=== PATIENT | female | born 1940 | race Caucasian/White ===

== ENCOUNTER → 2017-08-13 10:10 | Outpatient (CLI) | payer MEDICARE, SELFPAY ==
--- NOTE | 2017-08-13 10:14 | RAD_ITS ---
STUDY: X-RAY - CERVICAL SPINE REASON FOR EXAM: Female, 77 years old. Neck pain. TECHNIQUE: 5 view(s) of the cervical spine including lateral flexion and extension views were obtained. COMPARISON: None FINDINGS: There is generalized osteopenia. Normal anterior atlantoaxial articulation. Normal odontoid process. Normal cervical lordosis. There is limited extension and normal flexion. No abnormal motion is identified. Normal vertebral bodies and endplates. There is diffuse mild intervertebral disc space narrowing most marked at C3-4 and C4-5. There is diffuse uncovertebral and facet sclerosis. The soft tissue structures are unremarkable. RAD/Cerv Spine Obl/Flex/Ext Comp IMPRESSION: Osteopenia with mild cervical spondylosis. Limited extension with no abnormal motion. Electronically Signed: Dony Levy MD at 13:22 EDT , Service support ,
== END ==
PROVIDERS: Family Provider Student in an Organized Health Care Education/Training Program; PCP Student in an Organized Health Care Education/Training Program; Visit Provider Orthopaedic Surgery
DX: M54.2 Cervicalgia (principal)
CPT/HCPCS: 72052

== ENCOUNTER → 2017-11-05 10:47 | Outpatient (CLI) | payer MEDICARE, SELFPAY ==
--- NOTE | 2017-11-05 | LES_PTH ---
PATIENT: [facility] LOC: [facility] U#:[id number] AGE/SX: 84/F ROOM: RE11/05/[address]: Dr. Dieudonne Rai, BANDAR : 1940 BED: DIS: SPEC #: [id number] RECD: 11/05/17 10:31 STATUS: LIU KERA #: [id number] MONTSE: 11/05/17 00:[address]: Dieudonne Rai DEPT: SURGICAL PATHOLOGY RECD BY: Marjan Og ENTERED: 11/05/17 12:25 SP TYPE: Lesion OTHR DR: Dr. Ash Conway, Tissues: Skin of lip, NOS Procedures: Special Stain Group I Surgery Specimen Level IV AFB Stain (control) GMS Stain (control) HEADER OPERATION: Biopsy, lip PRE-OP DIAGNOSIS: Several month history for growth TISSUE SUBMITTED: Lower lip biopsy (fibroma) MICROSCOPIC DIAGNOSIS Lower lip, biopsy: Squamous mucosa with focal ulceration and associated acute inflammation and pseudo-epitheliomatous hyperplasia. Special stains for acid fast bacilli and fungi are negative for organisms; matched controls are appropriate. Negative for malignancy. JOSE:ashley 11/06/17 MICROSCOPIC DESCRIPTION Slides are reviewed. GROSS DESCRIPTION Received in fixative is one container labeled with the patient's name and designated lip lower. The specimen consists of a piece of scott soft tissue measuring 0.5 x 0.5 x 0.2 cm. The specimen is inked and submitted entirely in one cassette. The specimen will be bisected at the time of embedding. / JOSE:ashley 11/05/17 TC:2 CPT: 21822, 38720 x2
== END ==
PROVIDERS: Family Provider Student in an Organized Health Care Education/Training Program; PCP Student in an Organized Health Care Education/Training Program; Visit Provider Dentist Oral and Maxillofacial Surgery
DX: D10.0 Benign neoplasm of lip (principal)
CPT/HCPCS: 88305; 88312

== ENCOUNTER 2019-12-31 13:07 | Observation (INO) | payer MEDICARE, SELFPAY ==
[2019-12-31] VITALS (10 sets, daily range): BP systolic 97–172; BP diastolic 48–83; PULSE 61–86; RESP 15–24; TEMP 36.4–39.6; O2SAT 91–98; BMI 26.5; BMI 27.8; BMI 27.9
--- NOTE | 2019-12-31 13:32 | RAD_ITS ---
STUDY: X-RAY CHEST REASON FOR EXAM: Female, 79 years old. COUGH, , SHORTNESS OF BREATH TECHNIQUE: Single AP portable view of the chest. COMPARISON: None. FINDINGS: EKG electrodes are seen. Mild increased linear markings at the lung bases suggestive of mild interstitial edema and vascular congestion. There is no demonstrated pleural abnormality. There is mild cardiac enlargement. Normal mediastinum and tomas. Normal visualized pulmonary arteries. There is atherosclerotic tortuosity of the aortic arch and descending thoracic aorta. There are diffuse degenerative changes of the visualized thoracic spine. There is degenerative osteoarthritis of the bilateral shoulders. There is no demonstrated abnormality of the visualized soft tissue structures of the upper abdomen. RAD/Chest 1 View (Portable) IMPRESSION: Mild cardiomegaly and mild vascular congestion and CHF. Electronically Signed: Ricardo Anthony, at 14:57 EDT , Service support ,
--- NOTE | 2019-12-31 13:32 | EKG12_ITS ---
Test Reason : SOB Blood Pressure : / mmHG Vent. Rate : 082 BPM Atrial Rate : 082 BPM P-R Int : 180 ms QRS Dur : 078 ms QT Int : 388 ms P-R-T Axes : 038 -16 -14 degrees QTc Int : 453 ms Normal sinus rhythm with sinus arrhythmia Inferior infarct , age undetermined Abnormal ECG Confirmed by MERRILL LLANES, FRANDY ([id number]), editor house organ ROSITA MARTINEZ ([id number]) on 01/01/2020 9:30:49 AM Referred By: STARLA Confirmed By:FRANDY MOMIN MD
--- NOTE | 2019-12-31 13:33 | RAD_ITS ---
STUDY: X-RAY - LEFT FOOT CLINICAL: Female, 79 years old. REDNESS, SWOLLEN TECHNIQUE: 3 view(s) of the foot. COMPARISON: None. FINDINGS: There is a plantar calcaneal spur. Normal visualized subtalar, talonavicular, calcaneocuboid, tarsal and tarsometatarsal articulations. Normal metatarsi. There is degenerative arthrosis of the metatarsophalangeal joint of the hallux . Erosive changes of the head of the first metatarsal suggestive of possible osteomyelitis. Diffuse soft tissue swelling of the great toe. Normal tibial and fibular sesamoid bones. Normal interphalangeal joint of the great toe. Normal phalanges of the great toe. Flexion deformity at the second and third metatarsophalangeal joints. Normal interphalangeal joints and phalanges of the lesser toes. Soft tissue swelling. RAD/Foot min 3 Views IMPRESSION: Findings suggestive of erosive changes at the head of the first metatarsal suggestive of possible osteomyelitis. Flexion deformity at the second and third metatarsophalangeal joints. Plantar spur. Electronically Signed: Ricardo Anthony, at 15:07 EDT , Service support ,
--- NOTE | 2019-12-31 13:34 | ED.VIS.GEN ---
History of Present Illness Chief Complaint: General Illness Informant: Patient, Family Onset: Yesterday Current Severity: Moderate Maximum Severity: Moderate Narrative: Patient presents secondary to generalized illness that she noted yesterday. She complains of cough and chills along with headache and intermittent shortness of breath. She does report a wound on her left great toe that was first noted approximately 3 days ago. - Past Medical History (1) HTN (hypertension) Status: Chronic Comment: low T4-T3 conversion (2) Hypothyroid Status: Chronic (3) Osteoarthritis Status: Chronic Past Medical History - Allergies and Home Meds Allergies/Adverse Reactions: Allergies Aminoglycosides Allergy (Verified 12/31/19 13:08) Rash bee pollen [Bee Pollen] Allergy (Verified 12/31/19 13:08) Anaphylaxis celecoxib [From Celebrex] Allergy (Verified 12/31/19 13:08) Itching Sulfa (Sulfonamide Antibiotics) Allergy (Verified 12/31/19 13:08) Rash aspirin Adverse Reaction (Verified 12/31/19 13:08) Other Penicillins Adverse Reaction (Verified 12/31/19 13:08) Rash Primary Care Physician: Ash Conway DO [Primary Care Provider] - Prior records reviewed: Yes Lives: With Family Smoking Status: Never smoker Review of Systems General: Reports: Chills, Fever - Temperature 100.1 today Eyes: Denies: Visual changes - bilaterally ENT: Denies: Bilateral ear pain Cardiovascular: Denies: Chest pain Respiratory: Reports: Dyspnea, Cough Gastrointestinal: Denies: Abdominal pain Musculoskeletal: Reports: Myalgias Skin: Reports: Wounds Neurological: Reports: Headache, Weakness - Generalized weakness Hematologic: Denies: Easy bruising, Easy bleeding Allergy: Denies: Uticaria Physical Exam Vital Signs/Narrative: Vital Signs Temp Pulse Resp BP Pulse Ox 12/31/19 13:08 97.6 F L 66 20 H 140/71 H 98 Inital Vital Signs reviewed: Yes General: Well nourished, Well developed Head: Normocephalic ENT: Moist mucous membranes Neck: Supple Cardiovascular: Regular rate, Regular rhythm Respiratory: No distress, CTA bilaterally Abdomen: Soft, Nontender Skin: - - Wound to the medial aspect of the left great toe. No drainage noted. There is separate erythema over the lower leg and onto the proximal foot that is warm to the touch. No open wounds in this area. Neurological: Alert, Oriented x3 Psychological: Normal affect Diagnostic/Tx/Re-eval Impressions Chest X-Ray 12/31/19 13:32 IMPRESSION: Mild cardiomegaly and mild vascular congestion and CHF. Electronically Signed: Ricardo Contrerastalnoemi, at 14:57 EDT , Service support , Foot X-Ray 12/31/19 13:33 IMPRESSION: Findings suggestive of erosive changes at the head of the first metatarsal suggestive of possible osteomyelitis. Flexion deformity at the second and third metatarsophalangeal joints. Plantar spur. Electronically Signed: Ricardo Gabrielle, at 15:07 EDT , Service support , 12/31/19 13:32 Chest 1 View (Portable) [RAD] Stat 12/31/19 13:33 Foot min 3 Views [RAD] Stat Laboratory Results 12/31/19 12/31/19 12/31/19 13:42 13:42 13:42 WBC 12.5 H RBC 3.45 L Hgb 11.1 L Hct 32.9 L MCV 95.4 MCH 32.2 H MCHC 33.7 RDW Std Deviation 43.2 RDW Coeff of Zaheer 12.3 Plt Count 221 MPV 11.3 Immature Gran % (Auto) 0.700 Neut % (Auto) 84.8 H Lymph % (Auto) 7.1 L [place] % (Auto) 6.5 Eos % (Auto) 0.6 Baso % (Auto) 0.3 Absolute Neuts (auto) 10.6 H Absolute Lymphs (auto) 0.89 Nucleated RBC % 0 Sodium 139 Potassium 4.0 Chloride 108 H Carbon Dioxide 25.0 Anion Gap 6 BUN 22 H Creatinine 1.12 H Estim Creat Clear Calc 32.74 Est GFR (MDRD) Af Amer 60 Est GFR (MDRD) Non-Af 50 L BUN/Creatinine Ratio 19.6 Glucose 124 H Lactic Acid 1.0 Calcium 8.9 Total Bilirubin 1.30 H Direct Bilirubin 0.44 H AST 28 ALT 25 Alkaline Phosphatase 175 H Total Protein 7.1 Albumin 3.3 Globulin 3.8 Urine Color Urine Clarity Urine pH Ur Specific [place] Urine Protein Urine Glucose (UA) Urine Ketones Urine Occult Blood Urine Nitrite Urine Bilirubin Urine Urobilinogen Ur Leukocyte Esterase Urine RBC Urine WBC Ur Squamous Epith Cells Urine Bacteria Urine Mucus 12/31/19 14:00 WBC RBC Hgb Hct MCV MCH MCHC RDW Std Deviation RDW Coeff of Zaheer Plt Count MPV Immature Gran % (Auto) Neut % (Auto) Lymph % (Auto) [place] % (Auto) Eos % (Auto) Baso % (Auto) Absolute Neuts (auto) Absolute Lymphs (auto) Nucleated RBC % Sodium Potassium Chloride Carbon Dioxide Anion Gap BUN Creatinine Estim Creat Clear Calc Est GFR (MDRD) Af Amer Est GFR (MDRD) Non-Af BUN/Creatinine Ratio Glucose Lactic Acid Calcium Total Bilirubin Direct Bilirubin AST ALT Alkaline Phosphatase Total Protein Albumin Globulin Urine Color Straw Urine Clarity Clear Urine pH 8.0 Ur Specific [place] 1.015 Urine Protein Negative Urine Glucose (UA) Normal Urine Ketones Negative Urine Occult Blood Negative Urine Nitrite Negative Urine Bilirubin Negative Urine Urobilinogen Normal Ur Leukocyte Esterase Negative Urine RBC 0 SEEN Urine WBC 0-5 SEEN Ur Squamous Epith Cells 0-5 SEEN Urine Bacteria 0 SEEN Urine Mucus 0 SEEN - EKG Initial EKG Interpretation: Sinus Rhythm - Sinus at 82 with no acute ischemia. - Medical Decision Making Patient was at on quality assurance monitor. No arrhythmias noted. Test results discussed with patient and daughter at bedside. She does have changes on her foot x-ray concerning for osteomyelitis. She also has cellulitis of the left lower extremity. Cipro and vancomycin of been ordered as patient does have documented allergies to penicillin. I will speak with podiatry for close follow-up in house. Once Covid test returns hospitals will be contacted for admission. Addendum: Covid test has returned negative. Hospitalist will be contacted for admission. ED Disposition - Plan for ED Patient: Disposition: Acute Care Hospital [facility] Diagnosis: Osteomyelitis, Cellulitis Referrals: Ash Conway DO [Primary Care Provider] -
[2019-12-31 14:00] LABS: Absolute Lymphocyte Count 0.89 X10^3/uL (0.83-4.51); Absolute Neutrophil Count 10.6 X10^3/uL (2.0-7.7); Basophil# 0.04 X10^3/uL; Basophil% 0.3 % (0-1); Eosinophil# 0.07 X10^3/uL; Eosinophils% 0.6 % (0-5); Hematocrit 32.9 % (37-47); Hemoglobin 11.1 g/dL (12.0-15.0); Lymphocyte # 0.89 X10^3/ul (4.0); Lymphocyte % 7.1 % (19-41); Mean Corp Hgb Conc 33.7 g/dL (32-36); Mean Corpuscular Hgb 32.2 pg (27.0-32.0); Mean Corpuscular Volume 95.4 fL (81-99); Mean Platelet Vol. 11.3 fl (6.2-12.0); Monocyte# 0.82 X10^3/uL; Monocyte% 6.5 % (0-10); NRBC Flagged by Analyzer 0 % (0-5); Neutrophil # 10.62 X10^3/uL (2.7-7.7); Neutrophil % 84.8 % (47-70); Platelet Count 221 K/mm3 (150-450); RBC Distribution Width CV 12.3 % (11.6-14.6); RBC Distribution Width SD 43.2 fl (35.1-43.9); Red Blood Count 3.45 M/mm3 (4.2-5.4); White Blood Count 12.5 K/mm3 (4.4-11.0)
[2019-12-31 14:11] LABS: AST(SGOT) 28 U/L (15-37); Alanine Aminotransfer ALT/SGPT 25 U/L (13-56); Albumin, Serum 3.3 g/dL (3.2-5.0); Alkaline Phosphatase 175 U/L (45-117); Anion Gap 6 (5-15); BUN 22 mg/dL (7-18); BUN/Creat Ratio 19.6 RATIO (10-20); Bilirubin, Direct 0.44 mg/dL (0.00-0.30); Calcium,Total 8.9 mg/dL (8.5-10.1); Chloride 108 mmol/L (98-107); Creatinine, Serum 1.12 mg/dL (0.55-1.02); EST Glomerular Filtration Rate 50 mL/min (>60); Est Glom Filt Rate - Afr Amer 60 mL/min (>60); Estimated Creatinine Clearance 32.74 ml/min; Globulin 3.8 g/dL (2.2-4.2); Glucose 124 mg/dL (74-106); Protein, Total 7.1 g/dL (6.4-8.2); Sodium Level 139 mmol/L (136-145)
[2019-12-31 14:44] LABS: Bacteria 0 SEEN /hpf (None Seen); Mucous, Urine 0 SEEN /hpf (<or=2+); Red Blood Cells-Urine 0 SEEN /hpf (0-5)
[2019-12-31 14:47] LABS: Color, Urine Straw (Yellow); Glucose, Dipstick Normal (Normal); Ketone-Dipstick Negative (Negative); Leukocyte Esterase-Dipstick Negative /ul (Negative); Nitrite-Dipstick Negative (Negative); Occult Blood-Urine Negative /ul (Negative); Protein-Dipstick Negative (Negative); Specific Gravity, Urine 1.015 (1.002-1.030); Urine Bilirubin Dipstick Negative (Negative); Urine Clarity Clear (Clear); Urine Urobilinogen Normal (Normal)
[2019-12-31 15:13] LABS: Squamous Epithelial Cells - UA 0-5 SEEN /hpf (5-10); White Blood Cells 0-5 SEEN /hpf (0-5)
[2019-12-31] MEDS: fentaNYL 100 MCG/2 ML Ampul 12.5 MCG IV (16:10)
[2019-12-31] MEDS: Acetaminophen 500 MG Tablet 1000 MG PO (16:12)
[2019-12-31] MEDS: Ciprofloxacin 400 MG/200 ML BAG 200 MG IV ×2 (16:13→21:18)
--- NOTE | 2019-12-31 16:53 | PCM.HP.STD ---
Problem List (1) Osteomyelitis Status: Suspected (2) Cellulitis Status: Acute (3) Osteoarthritis Status: Chronic (4) Hypothyroid Status: Chronic (5) HTN (hypertension) Status: Chronic Comment: low T4-T3 conversion History of Present Illness Date of Admission: 12/31/19 Chief Complaint: Not feeling well, weakness. The patient is a 79 year old F with past medical history as mentioned above presented to the emergency room because of general illness and not feeling well. Her symptoms started yesterday. Patient is a poor informant and was not able to provide good history. According to the patient's daughter who is a nurse, patient has been not feeling well and not doing well over the last 3 to 4 days, weak, fatigued and tired, had some cough and headache. Daughter mentioned that she had no fever at home. The daughter stated that couple weeks ago, patient and her daughter were in [place] and the patient was bitten by fire ant, started having redness of the left foot and on the top of the first left big toe with blistering. Couple of days later, the blister on the left big toe ruptured and patient continued to have increasing swelling and erythema of the left foot and left leg. The patient complained of burning pain on the left big toe as well as dull aching pain on the left leg. Patient has history of hypertension which has been under control on metoprolol. She has been on levothyroxine for hypothyroidism. She had a history of depression and her daughter mentioned that she has a bad insomnia and does not sleep at night although she has been on paroxetine and Requip for restless leg syndrome. In the emergency department, patient was febrile, initial blood pressure was elevated but then improved, was tachypneic, no tachycardia, pulse ox was 95% on room air. Routine blood work was remarkable for mild leukocytosis, hemoglobin of 11.1 g/dL, BUN is 22, creatinine is 1.12. Urinalysis revealed no evidence of acute infection. COVID-19 PCR was negative. Chest x-ray revealed mild cardiomegaly, probable minimal vascular congestion, no infiltrate or consolidation. X-ray of the left foot revealed findings suggestive of erosive changes of the head of the first metatarsal, possible osteomyelitis. Patient is being admitted for sepsis secondary to acute left leg/left foot cellulitis with possible osteomyelitis of the left first metatarsal. Past Medical History Past Medical History (Chronic Problems): Chronic Problems Sinus bradycardia (Chronic) Osteoarthritis (Chronic) Hypothyroid (Chronic) HTN (hypertension) (Chronic) low T4-T3 conversion Allergies Aminoglycosides Allergy (Verified 12/31/19 13:08) Rash bee pollen [Bee Pollen] Allergy (Verified 12/31/19 13:08) Anaphylaxis celecoxib [From Celebrex] Allergy (Verified 12/31/19 13:08) Itching Sulfa (Sulfonamide Antibiotics) Allergy (Verified 12/31/19 13:08) Rash aspirin Adverse Reaction (Verified 12/31/19 13:08) Other Penicillins Adverse Reaction (Verified 12/31/19 13:08) Rash Home Medications: Ambulatory Orders Medication Instructions Recorded cholecalciferol (vitamin D3) 50 5,000 unit PO QODAY 08/13/17 mcg (2,000 unit) capsule naproxen sodium 220 mg tablet 220 mg PO BID 08/13/17 vitamin B complex 1 tab PO QDAY 08/13/17 Bumetanide [Bumex] 1 mg PO DAILY 12/31/19 Factor Five 2 tab PO DAILY 12/31/19 Levothyroxine Sodium [Synthroid] 125 mcg PO DAILY 12/31/19 Liquid Tears 12/31/19 Meloxicam 15 mg PO DAILY 12/31/19 Metoprolol(XL)Succ [Toprol Xl 25 mg PO DAILY 12/31/19 (Beta Jethro)] Paroxetine HCl [Paxil] 40 mg PO DAILY 12/31/19 Ropinirole HCl [Requip] 2 mg PO TID 12/31/19 Surgical History: Surgical History (Last Reviewed 12/31/19 @ 16:[address] Brittney Tuttle MD) H/O total knee replacement Z96.659 H/O tubal ligation Z98.51 h/o tonsilectomy Surgical History: total knee arthroplasty Psychiatric History: Depression [employer] SPECIALIST History: No pertinent PRO[employer]S SPECIALIST history Lives: Alone Smoking Status: Never smoker Alcohol: None Drugs: None - *Family History Maternal Family History: Family History (Last Reviewed 12/31/19 @ 16:[address] Brittney Tuttle MD) Sister Cancer Mother Diabetes Heart disease Review of Systems Constitutional: Reports: Weakness, Fatigue. Denies: Anorexia, Chills, Fever Eyes: Denies: Blurred vision, Double vision, Drainage, Redness HEENT: Denies: Difficulty Hearing, Dysphasia, Ear Pain, Eye Pain, Nasal Congestion, Sore Throat Cardiovascular: Denies: Chest Pain, Chest Pressure, Edema, Heaviness, Light Headedness, Palpitations, Syncope Respiratory: Reports: Cough. Denies: Hemoptysis, Pleuritic Pain, Shortness of Breath, Sputum production, Wheezing Gastrointestinal: Denies: Abdominal Pain, Constipation, Diarrhea, Nausea, Vomiting Genitourinary: Denies: Dysuria, Frequency, Hematuria Musculoskeletal: Reports: Leg Pain. Denies: Arm Pain, Back Pain, Foot Pain Skin: Denies: Dryness, Rash Neurological: Denies: Balance problems, Double vision, Change in Speech, Slurred speech, Confusion, Headaches, Incoordination Psychiatric: Reports: Depression. Denies: Anxiety Endocrine: Denies: Change in Body Habitus, Polydipsia, Polyuria VTE Information - Inpt Only VTE Present on Admission: No VTE Mechan Device Prophylaxis: None VTE Pharm Prophylaxis ordered?: Yes Patient Problems: Active and Suspected Problems Osteomyelitis (Suspected) Cellulitis (Acute) - Physical Exam Vitals/I&O's: Vital Signs Temp Pulse Resp BP Pulse Ox 103.2 F H 76 24 H 97/67 97 12/31/19 16:17 12/31/19 16:17 12/31/19 16:17 12/31/19 16:17 12/31/19 16:17 Oxygen Delivery Method Room Air Weight: 145 lb Body Mass Index (BMI) 26.5 General: Alert, Oriented x3, Cooperative, No apparent distress HEENT: Atraumatic, PERRLA, EOMI, Normocephalic Oral: Moist Mucosa, No Gingival or Mucosal Lesions/ Ulcerations Neck: Supple, No JVD, Negative Carotid Bruits, Trachea Midline, Thyroid Normal Size and Texture Lungs: Clear to auscultation, Normal air movement, No rhonchi, No wheeze, No rales, Diminished Cardiovascular: Regular rate, Regular Rhythm, Normal S1, Normal S2, PMI Normal Abdomen: Bowel Sounds Present, Soft, Non Tender, Non-Distended, No Hepato-splenomegaly Extremities: No clubbing, No cyanosis, Edema - Trace edema., - - Left leg/foot: Erythema and swelling of the lower two thirds of the left leg extending down to the left foot and left big toe, erythema of the big toe with sloughing. Skin: No rashes, No breakdown Lymphatic: No Cervical, Supraclavicular, or Inguinal Adenopathy Neurological: Cranial nerves II-XII grossly intact, Motor Exam 5/5 strength throughout Psych/Mental Status: Normal Affect, Appropriate, Alert and oriented to time, place, person, mood and affect Laboratory Results 12/31/19 13:41: COVID-19 (BRITANY) Not Detected 12/31/19 13:42: WBC 12.5 H, RBC 3.45 L, Hgb 11.1 L, Hct 32.9 L, MCV 95.4, MCH 32.2 H, MCHC 33.7, RDW Std Deviation 43.2, RDW Coeff of Zaheer 12.3, Plt Count 221, MPV 11.3, Immature Gran % (Auto) 0.700, Neut % (Auto) 84.8 H, Lymph % (Auto) 7.1 L, [place] % (Auto) 6.5, Eos % (Auto) 0.6, Baso % (Auto) 0.3, Absolute Neuts (auto) 10.6 H, Absolute Lymphs (auto) 0.89, Nucleated RBC % 0 12/31/19 13:42: Sodium 139, Potassium 4.0, Chloride 108 H, Carbon Dioxide 25.0, Anion Gap 6, BUN 22 H, Creatinine 1.12 H, Estim Creat Clear Calc 32.74, Est GFR (MDRD) Af Amer 60, Est GFR (MDRD) Non-Af 50 L, BUN/Creatinine Ratio 19.6, Glucose 124 H, Calcium 8.9, Total Bilirubin 1.30 H, Direct Bilirubin 0.44 H, AST 28, ALT 25, Alkaline Phosphatase 175 H, Total Protein 7.1, Albumin 3.3, Globulin 3.8 12/31/19 13:42: Lactic Acid 1.0 12/31/19 14:00: Urine Color Straw, Urine Clarity Clear, Urine pH 8.0, Ur Specific [place] 1.015, Urine Protein Negative, Urine Glucose (UA) Normal, Urine Ketones Negative, Urine Occult Blood Negative, Urine Nitrite Negative, Urine Bilirubin Negative, Urine Urobilinogen Normal, Ur Leukocyte Esterase Negative, Urine RBC 0 SEEN, Urine WBC 0-5 SEEN, Ur Squamous Epith Cells 0-5 SEEN, Urine Bacteria 0 SEEN, Urine Mucus 0 SEEN Clinical Impression(s) from Imaging Studies Chest X-Ray 12/31/19 13:32 IMPRESSION: Mild cardiomegaly and mild vascular congestion and CHF. Electronically Signed: Ricardo Anthony, at 14:57 EDT , Service support , Foot X-Ray 12/31/19 13:33 IMPRESSION: Findings suggestive of erosive changes at the head of the first metatarsal suggestive of possible osteomyelitis. Flexion deformity at the second and third metatarsophalangeal joints. Plantar spur. Electronically Signed: Ricardo Anthony, at 15:07 EDT , Service support , Assessment/Plan All Active Problems Cellulitis (Acute) This is a 79 years old female patient presented to the emergency room because of not feeling well, generally ill, complained of some cough and malaise as well as swelling and erythema of the left leg and left foot in the setting of recent insect bite, found to have sepsis secondary to acute left leg cellulitis/left foot cellulitis with possible osteomyelitis of the left first metatarsal and she is being admitted for evaluation and treatment. #1 acute left leg/left foot cellulitis with possible osteomyelitis of the left first metatarsal/sepsis: Patient is febrile, tachypneic, leukocytosis with evidence of infection. Lactic acid was normal. Urinalysis reviewed, no acute infection. Chest x-ray was unremarkable. COVID-19 PCR was negative. Plan: Admit to Med[facility] floor, telemetry monitoring, gentle IV fluids for hydration, blood culture, wound culture, start IV ciprofloxacin and IV vancomycin, ESR, CRP, MRI left foot to rule out osteomyelitis, podiatry medicine consult, repeat CBC and BMP tomorrow morning, PT OT evaluation and treatment. #2 hypertension: Stable, continue metoprolol. #3 hypothyroidism: Stable, continue levothyroxine. #4 renal insufficiency: This is probably chronic, creatinine has been around 1.1 to 1.3 mg/dL, admission creatinine is 1.12 which is stable at baseline. Plan to monitor. #5 restless leg syndrome: Continue Requip. #6 depression/insomnia: Continue paroxetine, start Ambien as needed for insomnia. #7 DVT prophylaxis: Renally adjusted subcu Lovenox. This note was generated with [employer] dictation software. It may contain incorrect words, spelling, and punctuation that were not noted in checking the note before signing. Inpatient E&M: 00132 Init Hosp L3
[2019-12-31] MEDS: Vancomycin IV 1,000 MG/200 ML BAG 200 MG IV (17:00)
[2019-12-31 18:20] LABS: International Normalized Ratio 1.1; Prothrombin Time (Protime)PT. 13.4 SECONDS (11.7-14.9)
[2019-12-31 19:17] LABS: Erythrocyte Sedimentation Rate 42 mm/hr (0-30)
--- NOTE | 2019-12-31 19:44 | CON.PCM_ITS ---
Problem List (1) Cellulitis Status: Acute (2) Ulcer of left foot with fat layer exposed Status: Acute (3) Cellulitis of left lower extremity Status: Acute (4) Hallux valgus (acquired), left foot Status: Chronic Reason for Consult Date of Consultation: 12/31/19 Reason for Consultation: infection left foot History of Present Illness: The patient is a 79 year old F who was seen bedside for left foot infection extending to the leg level. She was admitted due to generalized weakness, illness, cough and headache. She also relates she was bitten by multiple fire ants to bilateral lower extremities while she was in [place] last week. She began feeling ill within the last 3 to 4 days. She relates there has been color change and skin buildup to her left foot and she is unaware if she has a wound or not. She denies pain. She has leg swelling that is chronic. She reports some leg cramping that happens when she is walking however she cannot define this at distance. She denies burning and tingling on a regular basis to all toes however reports it happens occasionally to her big toe. Past Medical History Past Medical History (Chronic Problems): Chronic Problems Hallux valgus (acquired), left foot (Chronic) Sinus bradycardia (Chronic) Osteoarthritis (Chronic) Hypothyroid (Chronic) HTN (hypertension) (Chronic) low T4-T3 conversion Allergies Aminoglycosides Allergy (Verified 12/31/19 13:08) Rash bee pollen [Bee Pollen] Allergy (Verified 12/31/19 13:08) Anaphylaxis celecoxib [From Celebrex] Allergy (Verified 12/31/19 13:08) Itching Sulfa (Sulfonamide Antibiotics) Allergy (Verified 12/31/19 13:08) Rash aspirin Adverse Reaction (Verified 12/31/19 13:08) Other Penicillins Adverse Reaction (Verified 12/31/19 13:08) Rash Home Medications: Ambulatory Orders Medication Instructions Recorded cholecalciferol (vitamin D3) 50 5,000 unit PO QODAY 08/13/17 mcg (2,000 unit) capsule naproxen sodium 220 mg tablet 220 mg PO BID 08/13/17 vitamin B complex 1 tab PO QDAY 08/13/17 Bumetanide [Bumex] 1 mg PO DAILY 12/31/19 Factor Five 2 tab PO DAILY 12/31/19 Levothyroxine Sodium [Synthroid] 125 mcg PO DAILY 12/31/19 Liquid Tears 10/29/20 Meloxicam 15 mg PO DAILY 12/31/19 Metoprolol(XL)Succ [Toprol Xl 25 mg PO DAILY 12/31/19 (Beta Jethro)] Paroxetine HCl [Paxil] 40 mg PO DAILY 12/31/19 Ropinirole HCl [Requip] 2 mg PO TID 12/31/19 Surgical History: Surgical History (Last Reviewed 12/31/19 @ 16:[address] Brittney Tuttle MD) H/O total knee replacement Z96.659 H/O tubal ligation Z98.51 h/o tonsilectomy Surgical History: total knee arthroplasty Psychiatric History: Depression ACID CONDITIONER History: No pertinent ACID CONDITIONER history Lives: Alone Smoking Status: Never smoker Alcohol: None Drugs: None - *Family History Maternal Family History: Family History (Last Reviewed 12/31/19 @ 16:[address] Brittney Tuttle MD) Sister Cancer Mother Diabetes Heart disease Review of Systems Constitutional: Reports: Fatigue. Denies: Chills, Fever Cardiovascular: Reports: Edema Respiratory: Reports: Cough Gastrointestinal: Denies: Nausea, Vomiting Musculoskeletal: Reports: Foot Pain. Denies: Leg Pain Skin: Reports: Skin Changes, Wounds Neurological: Reports: Balance problems, Numbness - intermittent Psychiatric: Reports: Depression Patient Problems: Active and Suspected Problems Ulcer of left foot with fat layer exposed (Acute) Cellulitis of left lower extremity (Acute) Osteomyelitis (Suspected) Cellulitis (Acute) - Physical Exam Vitals/I&O's: Vital Signs Temp Pulse Resp BP Pulse Ox 98.9 F 70 18 116/53 L 94 12/31/19 17:37 12/31/19 17:37 12/31/19 17:37 12/31/19 17:37 12/31/19 17:37 Oxygen Delivery Method Room Air Weight: 71.4 kg Body Mass Index (BMI) 27.8 Intake and Output for Last 24 Hours 12/29/19 12/30/19 12/31/19 23:59 23:59 23:59 Intake Total 400 / 400 Balance 400 / 400 General: Alert, Oriented x3, Cooperative HEENT: Atraumatic Extremities: No cyanosis, Capillary Refill Less than 3 Seconds - all 10 digits, Diminished Peripheral Pulses - 2/4 bilateral dp, and right PT. 0/4 pt left., Edema - bilateral lower extremity Skin: Ulcer/ Wound - skin discontinuity plantar medial hallux measures about 5x5x1 mm. granular subhemmorhagic base with peripheral callous. no purulence, no odor, no necrosis or probe to deep tissue, - - bilateral lower extremity skin is atrophic and hairless. erythema hindfoot left to mid leg (marked) and some erythema/hyperpigmentation right lower leg Musculoskeletal: No Tenderness to Palpation of Joints or Extremities, Muscle Wasting Neurological: Sensory exam intact to light touch and pain Psych/Mental Status: Normal Affect, Appropriate Laboratory Results 12/31/19 13:41: COVID-19 (BRITANY) Not Detected 12/31/19 13:42: WBC 12.5 H, RBC 3.45 L, Hgb 11.1 L, Hct 32.9 L, MCV 95.4, MCH 32.2 H, MCHC 33.7, RDW Std Deviation 43.2, RDW Coeff of Zaheer 12.3, Plt Count 221, MPV 11.3, Immature Gran % (Auto) 0.700, Neut % (Auto) 84.8 H, Lymph % (Auto) 7.1 L, [place] % (Auto) 6.5, Eos % (Auto) 0.6, Baso % (Auto) 0.3, Absolute Neuts (auto) 10.6 H, Absolute Lymphs (auto) 0.89, Nucleated RBC % 0 12/31/19 13:42: Sodium 139, Potassium 4.0, Chloride 108 H, Carbon Dioxide 25.0, Anion Gap 6, BUN 22 H, Creatinine 1.12 H, Estim Creat Clear Calc 32.74, Est GFR (MDRD) Af Amer 60, Est GFR (MDRD) Non-Af 50 L, BUN/Creatinine Ratio 19.6, Glucose 124 H, Calcium 8.9, Total Bilirubin 1.30 H, Direct Bilirubin 0.44 H, AST 28, ALT 25, Alkaline Phosphatase 175 H, Total Protein 7.1, Albumin 3.3, Globulin 3.8 12/31/19 13:42: Lactic Acid 1.0 12/31/19 13:42: ESR 42 H 12/31/19 13:42: PT 13.4, INR 1.1 12/31/19 13:42: C-React Prot Ext Range 95.50 H 12/31/19 14:00: Urine Color Straw, Urine Clarity Clear, Urine pH 8.0, Ur Specific [place] 1.015, Urine Protein Negative, Urine Glucose (UA) Normal, Urine Ketones Negative, Urine Occult Blood Negative, Urine Nitrite Negative, Urine Bilirubin Negative, Urine Urobilinogen Normal, Ur Leukocyte Esterase Negative, Urine RBC 0 SEEN, Urine WBC 0-5 SEEN, Ur Squamous Epith Cells 0-5 SEEN, Urine Bacteria 0 SEEN, Urine Mucus 0 SEEN Current Medications Acetaminophen (Acetaminophen 325 Mg Tablet) 650 mg PO Q6H PRN PRN PRN Reason: Pain Score 1-10/Temp > 100.7 F Acetylcysteine (Acetylcysteine (Mucomyst Oral) 20% Soln) 1,200 mg PO BID [facility] Stop: 01/02/20 10:01 Enoxaparin Sodium (Enoxaparin 40 Mg/0.4 Ml Syringe) 40 mg SC DAILY [facility] Sodium Chloride () 1,000 mls @ 75 mls/hr IV .[id number] [facility] Stop: 01/01/20 20:32 Ciprofloxacin (Cipro) 400 mg in 200 mls @ 200 mls/hr IV Q12 [facility] Vancomycin IV Pharmacy to Dose (1 ea/ Sodium Chloride) 500 mls @ 250 mls/hr IV PRN PRN; Protocol PRN Reason: Rx to Dose Vancomycin HCl (Vancomycin) 1,000 mg in 200 mls @ 200 mls/hr IV Q24H [facility] Levothyroxine Sodium (Levothyroxine 125 Mcg Tablet) 125 mcg PO DAILY@0600 [facility] Metoprolol Succinate (Metoprolol(Xl)Succ 25 Mg Tablet) 25 mg PO DAILY [facility] Ondansetron HCl (Ondansetron 4 Mg/2 Ml Vial) 4 mg IV Q8H PRN PRN PRN Reason: NAUSEA/VOMITING Oxycodone HCl (Oxycodone 5 Mg Tablet) 5 mg PO Q6H PRN PRN PRN Reason: Pain Score 6-10 Paroxetine HCl (Paroxetine 20 Mg Tablet) 40 mg PO DAILY [facility] Pramipexole Dihydrochloride (Pramipexole Di-Hcl 1 Mg Tablet) 1 mg PO TID [facility] Senna/Docusate Sodium (Senna/Docusate Sodium 1 Tablet) 2 tablet PO BID PRN PRN PRN Reason: Constipation Sodium Chloride (0.9% Saline Lock 10 Ml Syringe) 10 - 40 ml IV UD PRN PRN Reason: SALINE FLUSH Zolpidem Tartrate (Zolpidem Tartrate 5 Mg Tablet) 5 mg PO QHS PRN PRN PRN Reason: INSOMNIA Assessment/Plan All Active Problems Ulcer of left foot with fat layer exposed (Acute) Cellulitis of left lower extremity (Acute) Cellulitis (Acute) left foot cellulitis left foot ulcer with fat layer exposed lower extremity edema I reviewed and discussed her case. She is afebrile and her vital signs remained stable. She does have mild leukocytosis of over 12. Blood cultures pending. After debridement of her callus (verbal consent obtained) with 15 blade scalpel a skin discontinuity ulcer was identified measuring approximately 5 x 5 x 1 mm. This was cultured and sent for aerobic, anaerobic, and MRSA PCR testing. A Betadine wet-to-dry dressing was applied. Her cellulitis area was marked and will be monitored. She was started on cefazolin and vancomycin for broad-spectrum coverage. I recommend monitoring her clinically in which if there is lack of improvement I do recommend an MRI. Her radiographs were reviewed and there are some osseous changes to the medial eminence of the first metatarsal head. This is not correlate clinically with the open ulcer site and may be a chronic cystic change associated with her hallux valgus. It could also be a remote sign of an infection or other cystic development. To keep pressure off the ulcer right heel weightbearing in a surgical shoe; this was ordered. Some of her pulses were not palpable and due to her rubor and her current skin discontinuity, I recommend lower extremity arterial studies. These were ordered and will hopefully be done tomorrow. She has lower extremity edema and an Drew wrap was applied to left lower extremity. More aggressive compression therapy or elevation may be recommended after review of her noninvasive vascular studies. Her other systemic signs of illness are noted and she will be monitored for additional sources of infection however an ulcer on the left hallux is a likely nidus. Thank you for the consultation. Please not hesitate to call if you have any questions. I will continue to follow her closely while in house. Ramonita Broderick DPM, [facility] [phone]
--- NOTE | 2019-12-31 19:51 | ART_ITS ---
Reason For Study: Decreased pedal pulses Procedure A bilateral lower extremity continuous wave Doppler with analog waveform analysis,segmental pressures,and ankle brachial indexes without exercise. Left Segmental Pressures Left brachial= 139mmHg. Left posterior tibial artery = 146mmHg. Left dorsalis pedis artery = 145mmHg. The left dorsalis pedis waveforms are biphasic. The left posterior tibial artery waveforms are biphasic. Right Segmental Pressures Right brachial= 137mmHg. Right posterior tibial artery = 153mmHg. Right dorsalis pedis artery = 158mmHg. Right digit = 144 mmHg. The right dorsalis pedis waveforms are triphasic. The right posterior tibial artery waveforms are triphasic. Indices The right ankle brachial index by the dorsalis pedis is 1.14. The right ankle brachial index by the posterior tibial artery is 1.10. The right digital-brachial index is 1.04. The left ankle brachial index by the dorsalis pedis is 1.05. The left ankle brachial index by the posterior tibial artery is 1.04. Interpretation Summary Triphasic Doppler waveforms are noted at ankle level on the right. Biphasic Doppler waveforms are noted at ankle level on the left. Pulse-volume recordings appear satisfactory at all levels bilaterally, though not determined at digital level on the left due to bandages. Resting ankle- brachial indices are normal bilaterally. The right digital-brachial index is normal. The left digital-brachial index was not determined due to the presence of bandages. There is no evidence of significant arterial occlusive disease in the lower extremities, though the left digital level was not assessed due to the presence of bandages. Ordering Physician: Ramonita Broderick Referring Physician: Ash Conway Performed By: Lesley Martin RVT and Student
--- NOTE | 2019-12-31 19:52 | PCM.RX.CS ---
Consult Pharmacy has been consulted to manage selected antiobiotic: Vancomycin Type of Consult: New start Suspected Infection: Skin/Soft tissue, Osteomyelitis Labs: Sodium 139 mmol/L (136-145) 12/31/19 13:42 Potassium 4.0 mmol/L (3.5-5.1) 12/31/19 13:42 Chloride 108 mmol/L (98-107) H 12/31/19 13:42 Carbon Dioxide 25.0 mmol/L (21.0-32.0) 12/31/19 13:42 Anion Gap 6 (5-15) 12/31/19 13:42 BUN 22 mg/dL (7-18) H 12/31/19 13:42 Creatinine 1.12 mg/dL (0.55-1.02) H 12/31/19 13:42 Est GFR (MDRD) Af Amer 60 mL/min (>60) 12/31/19 13:42 Est GFR (MDRD) Non-Af 50 mL/min (>60) L 12/31/19 13:42 BUN/Creatinine Ratio 19.6 RATIO (-) 12/31/19 13:42 Glucose 124 mg/dL (74-106) H 12/31/19 13:42 Goal Trough: 15-20 mcg/mL Pharmacy Plan for Drug Dosing: NEW START IV VANCOMYCIN Consulting Physician: Parag Indication: SSTI/ oseto /Cellulitis Goal Trough: 15-20 SrCr: 1.12 CrCl: 33 mL/min Comments: Had 1g IV x1 in ED 12/30 @1700. Vancomcyin Dose: 1000mg IV Q24hr to start 01/01/20 @1700 Pending Level: 01/02/20 @1630 (prior to 3rd total dose per protocol) Pharmacy Service will continue to monitor and adjust dosing as required.
[2019-12-31] MEDS: 0.9% Normal Saline 1,000 ML 75 ML IV (20:08)
[2019-12-31] MEDS: Acetaminophen 325 MG Tablet 650 MG PO (20:09)
[2019-12-31] MEDS: Acetylcysteine (Mucomyst Oral) 20% SOLN 1200 MG PO (21:18)
[2019-12-31] MEDS: Pramipexole Di-HCl 1 MG Tablet PO (21:18)
[2019-12-31] MEDS: oxyCODONE 5 MG Tablet PO (21:22)
[2019-12-31 23:18] LABS: M R Staph aureus DNA By PCR Negative (Negative); Probe Check PASS; Staph aureus DNA By PCR NEGATIVE (Negative)
[2020-01-01] VITALS (12 sets, daily range): BP systolic 107–160; BP diastolic 57–90; PULSE 45–63; RESP 14–18; TEMP 36.6–36.9; O2SAT 95
[2020-01-01] MEDS: Pramipexole Di-HCl 1 MG Tablet PO ×3 (05:47→21:37)
[2020-01-01] MEDS: Levothyroxine 125 MCG Tablet PO (05:47)
[2020-01-01 07:18] LABS: Absolute Lymphocyte Count 1.13 X10^3/uL (0.83-4.51); Absolute Neutrophil Count 12.7 X10^3/uL (2.0-7.7); Basophil# 0.06 X10^3/uL; Basophil% 0.4 % (0-1); Eosinophil# 0.08 X10^3/uL; Eosinophils% 0.5 % (0-5); Hematocrit 31.7 % (37-47); Hemoglobin 10.3 g/dL (12.0-15.0); Lymphocyte # 1.13 X10^3/ul (4.0); Lymphocyte % 7.5 % (19-41); Mean Corp Hgb Conc 32.5 g/dL (32-36); Mean Corpuscular Hgb 31.2 pg (27.0-32.0); Mean Corpuscular Volume 96.1 fL (81-99); Mean Platelet Vol. 11.5 fl (6.2-12.0); Monocyte# 0.92 X10^3/uL; Monocyte% 6.1 % (0-10); NRBC Flagged by Analyzer 0 % (0-5); Neutrophil # 12.73 X10^3/uL (2.7-7.7); Neutrophil % 84.8 % (47-70); Platelet Count 179 K/mm3 (150-450); RBC Distribution Width CV 12.3 % (11.6-14.6); RBC Distribution Width SD 42.5 fl (35.1-43.9)
[2020-01-01 07:34] LABS: ALB/GLOB Ratio 0.7 RATIO (0.9-2.4); AST(SGOT) 30 U/L (15-37); Alanine Aminotransfer ALT/SGPT 24 U/L (13-56); Albumin, Serum 2.6 g/dL (3.2-5.0); Alkaline Phosphatase 148 U/L (45-117); Anion Gap 7 (5-15); BUN 26 mg/dL (7-18); BUN/Creat Ratio 20.3 RATIO (10-20); Calcium,Total 8.4 mg/dL (8.5-10.1); Chloride 104 mmol/L (98-107); Creatinine, Serum 1.28 mg/dL (0.55-1.02); EST Glomerular Filtration Rate 43 mL/min (>60); Est Glom Filt Rate - Afr Amer 52 mL/min (>60); Estimated Creatinine Clearance 29.96 ml/min; Globulin 3.6 g/dL (2.2-4.2); Glucose 119 mg/dL (74-106); Potassium 3.6 mmol/L (3.5-5.1); Protein, Total 6.2 g/dL (6.4-8.2); Sodium Level 135 mmol/L (136-145)
--- NOTE | 2020-01-01 07:41 | PCM.PN.HOSP ---
Patient Problems: Active and Suspected Problems Ulcer of left foot with fat layer exposed (Acute) Cellulitis of left lower extremity (Acute) Osteomyelitis (Suspected) Cellulitis (Acute) Reason for Visit: Follow-up on osteomyelitis/cellulitis Subjective: Patient seen and examined. Denies chest pain, dizziness, palpitations or fever. MRI of left foot showed no osteomyelitis. Objective: Physical exam: General: Alert, Oriented x3, Cooperative, No apparent distress HEENT: Atraumatic, PERRLA, EOMI, Normocephalic Oral: Moist Mucosa, No Gingival or Mucosal Lesions/ Ulcerations Neck: Supple, No JVD, Negative Carotid Bruits, Trachea Midline, Thyroid Normal Size and Texture Lungs: Clear to auscultation, Normal air movement, No rhonchi, No wheeze, No rales, Diminished Cardiovascular: Regular rate, Regular Rhythm, Normal S1, Normal S2, PMI Normal Abdomen: Bowel Sounds Present, Soft, Non Tender, Non-Distended, No Hepato-splenomegaly Extremities: No clubbing, No cyanosis, Edema - Trace edema., - - Left leg/foot: Erythema and swelling of the lower two thirds of the left leg extending down to the left foot and left big toe, erythema of the big toe with sloughing. Skin: No rashes, No breakdown Lymphatic: No Cervical, Supraclavicular, or Inguinal Adenopathy Neurological: Cranial nerves II-XII grossly intact, Motor Exam 5/5 strength throughout Psych/Mental Status: Normal Affect, Appropriate, Alert and oriented to time, place, person, mood and affect Vitals/I&O's: Vital Signs Temp Pulse Resp BP Pulse Ox 97.9 F 47 L 18 107/57 L 95 01/01/20 02:17 01/01/20 04:00 01/01/20 02:17 01/01/20 02:17 01/01/20 02:17 Oxygen Flow Rate (L/min) 3 Oxygen Delivery Method Room Air Weight: 71.4 kg Body Mass Index (BMI) 27.8 Intake and Output for Last 24 Hours 12/30/19 12/31/19 01/01/20 23:59 23:59 23:59 Intake Total 688.75 / 688.75 Output Total 300 / 300 300 / 300 Balance 388.75 / 388.75 -300 / -300 Laboratory Results 12/31/19 13:41: COVID-19 (BRITANY) Not Detected 12/31/19 13:42: WBC 12.5 H, RBC 3.45 L, Hgb 11.1 L, Hct 32.9 L, MCV 95.4, MCH 32.2 H, MCHC 33.7, RDW Std Deviation 43.2, RDW Coeff of Zaheer 12.3, Plt Count 221, MPV 11.3, Immature Gran % (Auto) 0.700, Neut % (Auto) 84.8 H, Lymph % (Auto) 7.1 L, [place] % (Auto) 6.5, Eos % (Auto) 0.6, Baso % (Auto) 0.3, Absolute Neuts (auto) 10.6 H, Absolute Lymphs (auto) 0.89, Nucleated RBC % 0 12/31/19 13:42: Sodium 139, Potassium 4.0, Chloride 108 H, Carbon Dioxide 25.0, Anion Gap 6, BUN 22 H, Creatinine 1.12 H, Estim Creat Clear Calc 32.74, Est GFR (MDRD) Af Amer 60, Est GFR (MDRD) Non-Af 50 L, BUN/Creatinine Ratio 19.6, Glucose 124 H, Calcium 8.9, Total Bilirubin 1.30 H, Direct Bilirubin 0.44 H, AST 28, ALT 25, Alkaline Phosphatase 175 H, Total Protein 7.1, Albumin 3.3, Globulin 3.8 12/31/19 13:42: Lactic Acid 1.0 12/31/19 13:42: ESR 42 H 12/31/19 13:42: PT 13.4, INR 1.1 12/31/19 13:42: C-React Prot Ext Range 95.50 H 12/31/19 14:00: Urine Color Straw, Urine Clarity Clear, Urine pH 8.0, Ur Specific [place] 1.015, Urine Protein Negative, Urine Glucose (UA) Normal, Urine Ketones Negative, Urine Occult Blood Negative, Urine Nitrite Negative, Urine Bilirubin Negative, Urine Urobilinogen Normal, Ur Leukocyte Esterase Negative, Urine RBC 0 SEEN, Urine WBC 0-5 SEEN, Ur Squamous Epith Cells 0-5 SEEN, Urine Bacteria 0 SEEN, Urine Mucus 0 SEEN 12/31/19 20:10: S.aureus Protein A PCR NEGATIVE, MRSA (PCR) Negative 01/01/20 07:00: WBC 15.0 H, RBC 3.30 L, Hgb 10.3 L, Hct 31.7 L, MCV 96.1, MCH 31.2, MCHC 32.5, RDW Std Deviation 42.5, RDW Coeff of Zaheer 12.3, Plt Count 179, MPV 11.5, Immature Gran % (Auto) 0.700, Neut % (Auto) 84.8 H, Lymph % (Auto) 7.5 L, [place] % (Auto) 6.1, Eos % (Auto) 0.5, Baso % (Auto) 0.4, Absolute Neuts (auto) 12.7 H, Absolute Lymphs (auto) 1.13, Nucleated RBC % 0 01/01/20 07:00: Sodium 135 L, Potassium 3.6, Chloride 104, Carbon Dioxide 24.0, Anion Gap 7, BUN 26 H, Creatinine 1.28 H, Estim Creat Clear Calc 29.96, Est GFR (MDRD) Af Amer 52 L, Est GFR (MDRD) Non-Af 43 L, BUN/Creatinine Ratio 20.3 H, Glucose 119 H, Calcium 8.4 L, Total Bilirubin 2.20 H, AST 30, ALT 24, Alkaline Phosphatase 148 H, Total Protein 6.2 L, Albumin 2.6 L, Globulin 3.6, Albumin/Globulin Ratio 0.7 L Current Medications Acetaminophen (Acetaminophen 325 Mg Tablet) 650 mg PO Q6H PRN PRN PRN Reason: Pain Score 1-10/Temp > 100.7 F Last Admin: 12/31/19 20:09 Dose: 650 mg Documented by: Acetylcysteine (Acetylcysteine (Mucomyst Oral) 20% Soln) 1,200 mg PO BID [facility] Stop: 01/02/20 10:01 Last Admin: 12/31/19 21:18 Dose: 1,200 mg Documented by: Enoxaparin Sodium (Enoxaparin 40 Mg/0.4 Ml Syringe) 40 mg SC DAILY [facility] Sodium Chloride () 1,000 mls @ 75 mls/hr IV .[id number] [facility] Stop: 01/01/20 20:32 Last Infusion: 12/31/19 22:18 Dose: 75 mls/hr Documented by: Ciprofloxacin (Cipro) 400 mg in 200 mls @ 200 mls/hr IV Q12 [facility] Last Infusion: 12/31/19 22:18 Dose: Infused Documented by: Vancomycin IV Pharmacy to Dose (1 ea/ Sodium Chloride) 500 mls @ 250 mls/hr IV PRN PRN; Protocol PRN Reason: Rx to Dose Vancomycin HCl (Vancomycin) 1,000 mg in 200 mls @ 200 mls/hr IV Q24H [facility] Levothyroxine Sodium (Levothyroxine 125 Mcg Tablet) 125 mcg PO DAILY@0600 [facility] Last Admin: 01/01/20 05:47 Dose: 125 mcg Documented by: Metoprolol Succinate (Metoprolol(Xl)Succ 25 Mg Tablet) 25 mg PO DAILY [facility] Ondansetron HCl (Ondansetron 4 Mg/2 Ml Vial) 4 mg IV Q8H PRN PRN PRN Reason: NAUSEA/VOMITING Oxycodone HCl (Oxycodone 5 Mg Tablet) 5 mg PO Q6H PRN PRN PRN Reason: Pain Score 6-10 Last Admin: 12/31/19 21:22 Dose: 5 mg Documented by: Paroxetine HCl (Paroxetine 20 Mg Tablet) 40 mg PO DAILY [facility] Pramipexole Dihydrochloride (Pramipexole Di-Hcl 1 Mg Tablet) 1 mg PO TID [facility] Last Admin: 01/01/20 05:47 Dose: 1 mg Documented by: Senna/Docusate Sodium (Senna/Docusate Sodium 1 Tablet) 2 tablet PO BID PRN PRN PRN Reason: Constipation Sodium Chloride (0.9% Saline Lock 10 Ml Syringe) 10 - 40 ml IV UD PRN PRN Reason: SALINE FLUSH Zolpidem Tartrate (Zolpidem Tartrate 5 Mg Tablet) 5 mg PO QHS PRN PRN PRN Reason: INSOMNIA STROKE Vital Signs/Narrative: Vital Signs Pulse 01/01/20 04:00 47 L Medical Necessity - Tobacco Use Smoking Status: Never smoker Assessment/Plan All Active Problems Ulcer of left foot with fat layer exposed (Acute) Cellulitis of left lower extremity (Acute) Cellulitis (Acute) 1. Left cellulitis/osteomyelitis, MRI foot showed no osteomyelitis WBC is increased from 12.5 to 15.0 Continue on IV ciprofloxacin and vancomycin Continue pain control 2. Hypertension, controlled, continue on metoprolol Continue to monitor 3. Hypothyroidism, continue on levothyroxine 4. CKD stage 3, improved Cr is 1.28, slightly increased 1.28 Will trend BMP 5. Restless leg syndrome, continue on Mirapex 7. Depression, on Paxil 8. DVT PPx- Lovenox SC Inpatient E&M: 52134 Subs Hosp L2
--- NOTE | 2020-01-01 08:30 | MRI_ITS ---
STUDY: MRI LEFT FOREFOOT WITHOUT CONTRAST REASON FOR EXAM: Female, 79 years old. LEFT foot infection, big toe, bit by insect last month TECHNIQUE: Standardized fat and water weighted pulse sequences were obtained in all 3 orthogonal planes. COMPARISON: None. FINDINGS: There is degenerative arthrosis of the metatarsophalangeal joint of the hallux with a hallux valgus deformity. There is marrow edema of the fibula sesamoid consistent with a sesamoiditis. Normal interphalangeal joint of the hallux. Normal proximal and distal phalanges of the great toe. Normal medial and lateral heads of the flexor hallucis brevis tendons. Normal flexor and extensor hallucis longus tendons. Normal second through fifth metatarsophalangeal (MTP) joints. Normal interphalangeal joints of the second through fifth toes. Normal proximal, middle and distal phalanges of the second through fifth toes. Normal first through fourth intermetatarsal spaces. Normal flexor and extensor tendons of the second through fifth toes. Normal visualized metatarsi. Normal intrinsic muscles of the forefoot. There is no demonstrated soft tissue abnormality. MRI/Lower Ext/No Jt/w/o IMPRESSION: No MR evidence of cellulitis, abscess, or osteomyelitis. Electronically Signed: Fitz Majano MD at 13:41 EDT Tel , Service support ,
[2020-01-01] MEDS: 0.9% Normal Saline 1,000 ML 75 ML IV (09:12)
[2020-01-01] MEDS: Enoxaparin 40 MG/0.4 ML Syringe SC (09:13)
[2020-01-01] MEDS: Ciprofloxacin 400 MG/200 ML BAG 200 MG IV ×2 (09:13→21:35)
[2020-01-01] MEDS: Paroxetine 20 MG Tablet 40 MG PO (09:18)
[2020-01-01] MEDS: Acetylcysteine (Mucomyst Oral) 20% SOLN 1200 MG PO ×2 (09:18→21:37)
[2020-01-01] MEDS: Acetaminophen 325 MG Tablet 650 MG PO (09:18)
--- NOTE | 2020-01-01 10:39 | CASEMGMT ---
Social Work Note Per syrup blender questions, pt has completed HCPOA and LW and provided copies to [facility]. SW reviewed chart, LW found on pt's chart not HCPOA. SW in to speak with pt. SW introduced self and role at [facility]. Pt is alert and orientated. SW confirmed with pt that LW is on pt's chart but informed pt that HCPOA is not on file. Pt states she is able to bring in HCPOA. Lesley Magaña SOCIAL WORK INSTRUCTOR, PLUG MACHINE OPERATOR
--- NOTE | 2020-01-01 10:50 | CASEMGMT ---
RN CM Face to Face with patient for initial transition planning/care coordination assessment. RN CM introduced self and role at [facility] [place]. Patient sitting in chair, alert and oriented. Patient willing to participate in assessment and is able to answer all questions appropriately. Care providers, pharmacy, and demographics verified. Patient wishes to discharge home, denies need for home health at this time, will monitor if needed. Patient states she has no further needs or concerns at this time. CM to follow for discharge planning needs that may arise. PCP: Man Specialists: none Preferred Pharmacy: [facility] Insurance: [facility] Prescription Benefit: yes Living Will/HPOA: yes, daughter Yeni Burkett LNOK: daughter Living Arrangements: Patient lives with daughter who is a RN in a 2 story home with bed and bath on first floor. Patient states she is independent with self care and daughter assists with dressing changes. Transportation: daughter/self DME/HHC: Patient states she has cane, walker, shower chair, grab bars. Patient denies previous HHC. Daughter is nurse and provides wound care. Disposition Plan: Patient to discharge home with family support and follow-up plans in place. Lesley TOTH, RN, CM
--- NOTE | 2020-01-01 11:27 | NURSING ---
to MRI via bed
[2020-01-01] MEDS: Vancomycin IV 1,000 MG/200 ML BAG 200 MG IV (17:42)
--- NOTE | 2020-01-01 18:10 | PCM.PROGNOTE ---
Patient Problems: Active and Suspected Problems Ulcer of left foot with fat layer exposed (Acute) Cellulitis of left lower extremity (Acute) Osteomyelitis (Suspected) Cellulitis (Acute) Subjective: This 79-year-old female seen bedside for follow-up of left lower extremity cellulitis and hallux ulcer. She denies pain and reports she is feeling better today. She is also more alert. She has a surgical shoe in place. She is resting comfortable at the time of the exam. - Physical Exam Vitals/I&O's: Vital Signs Temp Pulse Resp BP Pulse Ox 98.4 F 50 L 14 160/90 H 95 01/01/20 09:00 01/01/20 14:00 01/01/20 09:00 01/01/20 09:00 01/01/20 09:00 Oxygen Flow Rate (L/min) 3 Oxygen Delivery Method Room Air Weight: 71.4 kg Body Mass Index (BMI) 27.8 Intake and Output for Last 24 Hours 12/30/19 12/31/19 01/01/20 23:59 23:59 23:59 Intake Total 688.75 / 688.75 1113.75 / 1113.75 Output Total 300 / 300 300 / 300 Balance 388.75 / 388.75 813.75 / 813.75 General: Alert, Oriented x3, Cooperative HEENT: Atraumatic Extremities: No cyanosis, Capillary Refill Less than 3 Seconds - All digits left foot, No Calf Tenderness, Diminished Peripheral Pulses Skin: Ulcer/ Wound - Skin discontinuity is reduced in size and measures 2 x 3 x 1 mm plantar hallux with granular base. There is no purulence on expression, erythema to the hallux or foot, streaking, probe to deep tissue, necrosis or acute new tissue loss., - - Skin is hairless and atrophic bilateral lower extremities Musculoskeletal: No Tenderness to Palpation of Joints or Extremities, Muscle Wasting, - - Compartment soft to palpate. Negative Tiffany and Pate sign bilateral. No bogginess or fluctuance on palpation Neurological: Sensory exam intact to light touch and pain Psych/Mental Status: Normal Affect, Appropriate Microbiology Past 72 Hours 12/31/19 20:10 Wound - Aerobic & Anaerobic Swabs Gram Stain - Final 12/31/19 20:10 Wound - Aerobic & Anaerobic Swabs Wound Culture - Preliminary Mixed Culture Laboratory Results 12/31/19 13:42: ESR 42 H 12/31/19 13:42: PT 13.4, INR 1.1 12/31/19 13:42: C-React Prot Ext Range 95.50 H 12/31/19 20:10: S.aureus Protein A PCR NEGATIVE, MRSA (PCR) Negative 01/01/20 07:00: WBC 15.0 H, RBC 3.30 L, Hgb 10.3 L, Hct 31.7 L, MCV 96.1, MCH 31.2, MCHC 32.5, RDW Std Deviation 42.5, RDW Coeff of Zaheer 12.3, Plt Count 179, MPV 11.5, Immature Gran % (Auto) 0.700, Neut % (Auto) 84.8 H, Lymph % (Auto) 7.5 L, [place] % (Auto) 6.1, Eos % (Auto) 0.5, Baso % (Auto) 0.4, Absolute Neuts (auto) 12.7 H, Absolute Lymphs (auto) 1.13, Nucleated RBC % 0 01/01/20 07:00: Sodium 135 L, Potassium 3.6, Chloride 104, Carbon Dioxide 24.0, Anion Gap 7, BUN 26 H, Creatinine 1.28 H, Estim Creat Clear Calc 29.96, Est GFR (MDRD) Af Amer 52 L, Est GFR (MDRD) Non-Af 43 L, BUN/Creatinine Ratio 20.3 H, Glucose 119 H, Calcium 8.4 L, Total Bilirubin 2.20 H, AST 30, ALT 24, Alkaline Phosphatase 148 H, Total Protein 6.2 L, Albumin 2.6 L, Globulin 3.6, Albumin/Globulin Ratio 0.7 L Current Medications Acetaminophen (Acetaminophen 325 Mg Tablet) 650 mg PO Q6H PRN PRN PRN Reason: Pain Score 1-10/Temp > 100.7 F Last Admin: 01/01/20 09:18 Dose: 650 mg Documented by: Acetylcysteine (Acetylcysteine (Mucomyst Oral) 20% Soln) 1,200 mg PO BID [facility] Stop: 01/02/20 10:01 Last Admin: 01/01/20 09:18 Dose: 1,200 mg Documented by: Enoxaparin Sodium (Enoxaparin 40 Mg/0.4 Ml Syringe) 40 mg SC DAILY [facility] Last Admin: 01/01/20 09:13 Dose: 40 mg Documented by: Sodium Chloride () 1,000 mls @ 75 mls/hr IV .[id number] [facility] Stop: 01/01/20 20:32 Last Infusion: 01/01/20 10:30 Dose: 0 mls/hr Documented by: Ciprofloxacin (Cipro) 400 mg in 200 mls @ 200 mls/hr IV Q12 [facility] Last Infusion: 01/01/20 10:13 Dose: Infused Documented by: Vancomycin IV Pharmacy to Dose (1 ea/ Sodium Chloride) 500 mls @ 250 mls/hr IV PRN PRN; Protocol PRN Reason: Rx to Dose Vancomycin HCl (Vancomycin) 1,000 mg in 200 mls @ 200 mls/hr IV Q24H [facility] Last Admin: 01/01/20 17:42 Dose: 200 mls/hr Documented by: Levothyroxine Sodium (Levothyroxine 125 Mcg Tablet) 125 mcg PO DAILY@0600 [facility] Last Admin: 01/01/20 05:47 Dose: 125 mcg Documented by: Metoprolol Succinate (Metoprolol(Xl)Succ 25 Mg Tablet) 25 mg PO DAILY [facility] Last Admin: 01/01/20 10:33 Dose: Not Given Documented by: Nutritional Formula (Lactose Free) (Ensure Enlive 120 Ml Liquid) 120 ml PO 4X/DAY [facility] Last Admin: 01/01/20 17:43 Dose: Not Given Documented by: Ondansetron HCl (Ondansetron 4 Mg/2 Ml Vial) 4 mg IV Q8H PRN PRN PRN Reason: NAUSEA/VOMITING Oxycodone HCl (Oxycodone 5 Mg Tablet) 5 mg PO Q6H PRN PRN PRN Reason: Pain Score 6-10 Last Admin: 12/31/19 21:22 Dose: 5 mg Documented by: Paroxetine HCl (Paroxetine 20 Mg Tablet) 40 mg PO DAILY [facility] Last Admin: 01/01/20 09:18 Dose: 40 mg Documented by: Pramipexole Dihydrochloride (Pramipexole Di-Hcl 1 Mg Tablet) 1 mg PO TID [facility] Last Admin: 01/01/20 15:43 Dose: 1 mg Documented by: Senna/Docusate Sodium (Senna/Docusate Sodium 1 Tablet) 2 tablet PO BID PRN PRN PRN Reason: Constipation Sodium Chloride (0.9% Saline Lock 10 Ml Syringe) 10 - 40 ml IV UD PRN PRN Reason: SALINE FLUSH Zolpidem Tartrate (Zolpidem Tartrate 5 Mg Tablet) 5 mg PO QHS PRN PRN PRN Reason: INSOMNIA Medical Necessity - Tobacco Use Smoking Status: Never smoker Assessment/Plan All Active Problems Ulcer of left foot with fat layer exposed (Acute) Cellulitis of left lower extremity (Acute) Cellulitis (Acute) left foot cellulitis improving Continued leukocytosis is noted left foot ulcer with fat layer exposed improving lower extremity edema I reviewed and discussed her case. She is afebrile and her vital signs remained stable. She does have leukocytosis of over 15. Blood cultures pending. Wound culture demonstrates mixed margie and is likely consistent with skin contamination. Final results are still pending. Her ulcer has reduced in size and there is no purulence or erythema at the toe level. A dry dressing was reapplied. Her cellulitis area that was marked has reduced in intensity and location. I also think chronic edema is contributing to some of the ruborous and hyperpigmentation changes to the limb. Her MRI was reviewed without any evidence of osteomyelitis, foreign body, acute injury, or deep tissue involvement adjacent to her superficial ulcer site. She was started on Cipro and vancomycin antibiotics at this time. To keep pressure off the ulcer right heel weightbearing in a surgical shoe; this was ordered. She has lower extremity edema and an Drew wrap was applied to left lower extremity. Noninvasive vascular studies were reviewed with by and triphasic waveforms and normal ABIs bilateral. There is no evidence of critical limb ischemia. She does have atrophic skin changes without hair and an outpatient vascular referral will be considered if she demonstrates lack of ongoing healing. No intervention is recommended in the acute setting at this time. I will continue to monitor close in house. Although her clinical status has significantly improved compared to yesterday in regards to lower extremity, it is noted that her white blood cell count is slightly elevated. Medical management DVT prophylaxis per primary team is appreciated. Please do not hesitate to call if you have any questions. Ramonita Broderick DPM, FACFAS [facility] [phone]
[2020-01-02] VITALS (7 sets, daily range): BP systolic 132–172; BP diastolic 54–75; PULSE 58–65; RESP 18; TEMP 36.6–37; O2SAT 92–93
[2020-01-02] MEDS: oxyCODONE 5 MG Tablet PO (00:08)
[2020-01-02] MEDS: Levothyroxine 125 MCG Tablet PO (05:22)
[2020-01-02] MEDS: Pramipexole Di-HCl 1 MG Tablet PO ×2 (05:22→15:51)
[2020-01-02 09:08] LABS: Absolute Lymphocyte Count 1.07 X10^3/uL (0.83-4.51); Absolute Neutrophil Count 6.1 X10^3/uL (2.0-7.7); Basophil# 0.03 X10^3/uL; Basophil% 0.4 % (0-1); Eosinophil# 0.21 X10^3/uL; Eosinophils% 2.6 % (0-5); Hematocrit 31.7 % (37-47); Hemoglobin 10.6 g/dL (12.0-15.0); Lymphocyte # 1.07 X10^3/ul (4.0); Lymphocyte % 13.2 % (19-41); Mean Corp Hgb Conc 33.4 g/dL (32-36); Mean Corpuscular Hgb 32.2 pg (27.0-32.0); Mean Corpuscular Volume 96.4 fL (81-99); Mean Platelet Vol. 11.7 fl (6.2-12.0); Monocyte# 0.69 X10^3/uL; Monocyte% 8.5 % (0-10); NRBC Flagged by Analyzer 0 % (0-5); Neutrophil # 6.07 X10^3/uL (2.7-7.7); Neutrophil % 74.9 % (47-70); Platelet Count 199 K/mm3 (150-450); RBC Distribution Width CV 12.3 % (11.6-14.6); RBC Distribution Width SD 43.3 fl (35.1-43.9); Red Blood Count 3.29 M/mm3 (4.2-5.4); White Blood Count 8.1 K/mm3 (4.4-11.0)
--- NOTE | 2020-01-02 09:29 | PCM.PROGNOTE ---
Patient Problems: Active and Suspected Problems Ulcer of left foot with fat layer exposed (Acute) Cellulitis of left lower extremity (Acute) Osteomyelitis (Suspected) Cellulitis (Acute) Subjective: This 79-year-old female seen bedside for follow-up of left lower extremity cellulitis and hallux ulcer and also right lower extremity cellulitis. She denies pain. She has a surgical shoe in place. She is resting comfortable at the time of the exam. - Physical Exam Vitals/I&O's: Vital Signs Temp Pulse Resp BP Pulse Ox 98 F 58 L 18 132/54 H 93 01/02/20 03:55 01/02/20 05:30 01/02/20 03:55 01/02/20 03:55 01/02/20 03:55 Oxygen Flow Rate (L/min) 3 Oxygen Delivery Method Room Air Weight: 71.4 kg Body Mass Index (BMI) 27.8 Intake and Output for Last 24 Hours 12/31/19 01/01/20 01/02/20 23:59 23:59 23:59 Intake Total 688.75 / 688.75 2213.75 / 2213.75 800 / 800 Output Total 300 / 300 800 / 800 500 / 500 Balance 388.75 / 388.75 1413.75 / 1413.75 300 / 300 General: Alert, Oriented x3, Cooperative HEENT: Atraumatic Extremities: No cyanosis, Capillary Refill Less than 3 Seconds, No Calf Tenderness - Negative Tiffany and Pate sign bilateral lower extremities. Compartments are soft to palpate bilateral lower extremities, Diminished Peripheral Pulses, Edema - Decreased bilateral lower extremities Skin: Ulcer/ Wound - Granular base plantar left hallux ulcer is intact without purulence necrosis infection. There is no streaking or erythema on the left foot. She has reduced and nearly resolved erythema to the lower left leg. The right leg no longer has erythema either. Musculoskeletal: No Tenderness to Palpation of Joints or Extremities, Muscle Wasting, - - Active range of motion digits x10 Neurological: Sensory exam intact to light touch and pain Psych/Mental Status: Normal Affect, Appropriate Microbiology Past 72 Hours 12/31/19 20:10 Wound - Aerobic & Anaerobic Swabs Gram Stain - Final 12/31/19 20:10 Wound - Aerobic & Anaerobic Swabs Wound Culture - Preliminary Mixed Culture Laboratory Results 01/02/20 08:50: WBC 8.1, RBC 3.29 L, Hgb 10.6 L, Hct 31.7 L, MCV 96.4, MCH 32.2 H, MCHC 33.4, RDW Std Deviation 43.3, RDW Coeff of Zaheer 12.3, Plt Count 199, MPV 11.7, Immature Gran % (Auto) 0.400, Neut % (Auto) 74.9 H, Lymph % (Auto) 13.2 L, [place] % (Auto) 8.5, Eos % (Auto) 2.6, Baso % (Auto) 0.4, Absolute Neuts (auto) 6.1, Absolute Lymphs (auto) 1.07, Nucleated RBC % 0 01/02/20 08:50: Sodium Pending, Potassium Pending, Chloride Pending, Carbon Dioxide Pending, Anion Gap Pending, BUN Pending, Creatinine Pending, Est GFR (MDRD) Af Amer Pending, Est GFR (MDRD) Non-Af Pending, BUN/Creatinine Ratio Pending, Glucose Pending, Calcium Pending, Total Bilirubin Pending, AST Pending, ALT Pending, Alkaline Phosphatase Pending, Total Protein Pending, Albumin Pending Current Medications Acetaminophen (Acetaminophen 325 Mg Tablet) 650 mg PO Q6H PRN PRN PRN Reason: Pain Score 1-10/Temp > 100.7 F Last Admin: 01/01/20 09:18 Dose: 650 mg Documented by: Acetylcysteine (Acetylcysteine (Mucomyst Oral) 20% Soln) 1,200 mg PO BID [facility] Stop: 01/02/20 10:01 Last Admin: 01/01/20 21:37 Dose: 1,200 mg Documented by: Enoxaparin Sodium (Enoxaparin 40 Mg/0.4 Ml Syringe) 40 mg SC DAILY [facility] Last Admin: 01/01/20 09:13 Dose: 40 mg Documented by: Ciprofloxacin (Cipro) 400 mg in 200 mls @ 200 mls/hr IV Q12 [facility] Last Infusion: 01/02/20 00:01 Dose: Infused Documented by: Vancomycin IV Pharmacy to Dose (1 ea/ Sodium Chloride) 500 mls @ 250 mls/hr IV PRN PRN; Protocol PRN Reason: Rx to Dose Vancomycin HCl (Vancomycin) 1,000 mg in 200 mls @ 200 mls/hr IV Q24H [facility] Last Infusion: 01/01/20 21:10 Dose: Infused Documented by: Sodium Chloride () 250 mls @ 15 mls/hr IV .[id number] PRN PRN Reason: Saline Flush Last Admin: 01/02/20 05:20 Dose: 15 mls/hr Documented by: Sodium Chloride () 250 mls @ 15 mls/hr IV .[id number] PRN PRN Reason: Additional IVPB Infusion Levothyroxine Sodium (Levothyroxine 125 Mcg Tablet) 125 mcg PO DAILY@0600 [facility] Last Admin: 01/02/20 05:22 Dose: 125 mcg Documented by: Metoprolol Succinate (Metoprolol(Xl)Succ 25 Mg Tablet) 25 mg PO DAILY [facility] Last Admin: 01/01/20 10:33 Dose: Not Given Documented by: Ondansetron HCl (Ondansetron 4 Mg/2 Ml Vial) 4 mg IV Q8H PRN PRN PRN Reason: NAUSEA/VOMITING Oxycodone HCl (Oxycodone 5 Mg Tablet) 5 mg PO Q6H PRN PRN PRN Reason: Pain Score 6-10 Last Admin: 01/02/20 00:08 Dose: 5 mg Documented by: Paroxetine HCl (Paroxetine 20 Mg Tablet) 40 mg PO DAILY [facility] Last Admin: 01/01/20 09:18 Dose: 40 mg Documented by: Pramipexole Dihydrochloride (Pramipexole Di-Hcl 1 Mg Tablet) 1 mg PO TID [facility] Last Admin: 01/02/20 05:22 Dose: 1 mg Documented by: Senna/Docusate Sodium (Senna/Docusate Sodium 1 Tablet) 2 tablet PO BID PRN PRN PRN Reason: Constipation Sodium Chloride (0.9% Saline Lock 10 Ml Syringe) 10 - 40 ml IV UD PRN PRN Reason: SALINE FLUSH Zolpidem Tartrate (Zolpidem Tartrate 5 Mg Tablet) 5 mg PO QHS PRN PRN PRN Reason: INSOMNIA Medical Necessity - Tobacco Use Smoking Status: Never smoker Assessment/Plan All Active Problems Ulcer of left foot with fat layer exposed (Acute) Cellulitis of left lower extremity (Acute) Cellulitis (Acute) left foot and leg cellulitis improving Right lower extremity cellulitis resolved left foot ulcer with fat layer exposed improving lower extremity edema I reviewed and discussed her case. She is afebrile and her vital signs remained stable. Her leukocytosis has resolved and her white blood cell count is 8.1 this morning. Blood cultures pending. Wound culture demonstrates staph and beta-hemolytic organisms. Final results are still pending. Local signs of infection are residing well and there is no purulence or necrosis. She was started on Cipro and vancomycin antibiotics at this time. To keep pressure off the ulcer right heel weightbearing in a surgical shoe. She has lower extremity edema and an Drew wrap was applied to left lower extremity. I also recommend this for the right lower extremity. To elevate bilateral lower extremities. I change her dressing this morning with Aquacel Ag, gauze, Leroy. Noninvasive vascular studies were reviewed with by and triphasic waveforms and normal ABIs bilateral. There is no evidence of critical limb ischemia. Medical management DVT prophylaxis per primary team is appreciated. Okay to discharge from podiatry standpoint. I recommend she follows up with the [facility] in a week after discharge. Please do not hesitate to call if you have any questions. Ramonita Broderick DPM, FACFAS [facility] [phone]
[2020-01-02 09:32] LABS: ALB/GLOB Ratio 0.7 RATIO (0.9-2.4); AST(SGOT) 21 U/L (15-37); Alanine Aminotransfer ALT/SGPT 20 U/L (13-56); Albumin, Serum 2.5 g/dL (3.2-5.0); Alkaline Phosphatase 154 U/L (45-117); Anion Gap 6 (5-15); BUN 20 mg/dL (7-18); Calcium,Total 8.5 mg/dL (8.5-10.1); Chloride 110 mmol/L (98-107); Creatinine, Serum 1.05 mg/dL (0.55-1.02); EST Glomerular Filtration Rate 54 mL/min (>60); Est Glom Filt Rate - Afr Amer 65 mL/min (>60); Estimated Creatinine Clearance 36.53 ml/min; Globulin 3.6 g/dL (2.2-4.2); Glucose 121 mg/dL (74-106); Potassium 3.5 mmol/L (3.5-5.1); Protein, Total 6.1 g/dL (6.4-8.2); Sodium Level 139 mmol/L (136-145)
[2020-01-02] MEDS: Ciprofloxacin 400 MG/200 ML BAG 200 MG IV (10:08)
[2020-01-02] MEDS: Enoxaparin 40 MG/0.4 ML Syringe SC (10:09)
[2020-01-02] MEDS: Metoprolol(XL)Succ 25 MG Tablet PO (10:11)
[2020-01-02] MEDS: Paroxetine 20 MG Tablet 40 MG PO (10:11)
--- NOTE | 2020-01-02 10:30 | DCINST_ITS ---
Weight Bearing Status: Partial weight bearing - Heel weightbearing left lower extremity with surgical shoe Call your doctor if your incision/area has: Continuous Slow Oozing, Sudden Increased Bleeding, Increased Pain/ Swelling, Increased Redness, Foul Smelling Discharge Call your doctor if you observe: Fever of 101 or Higher, Calf discomfort, Uncontrolled pain Cleanse incision/area with: Soap & Water, - - Change dressing daily with Aquacel Ag to left hallux cover with gauze and. Apply Drew wraps starting on each foot and extending to the legs Allergies/Adverse Reactions: Allergies Aminoglycosides Allergy (Verified 12/31/19 13:08) Rash bee pollen [Bee Pollen] Allergy (Verified 12/31/19 13:08) Anaphylaxis celecoxib [From Celebrex] Allergy (Verified 12/31/19 13:08) Itching Sulfa (Sulfonamide Antibiotics) Allergy (Verified 12/31/19 13:08) Rash aspirin Adverse Reaction (Verified 12/31/19 13:08) Other Penicillins Adverse Reaction (Verified 12/31/19 13:08) Rash Medications to take at Discharge cholecalciferol (vitamin D3) 50 mcg (2,000 unit) capsule 5,000 unit PO QODAY 08/13/17 naproxen sodium 220 mg tablet 220 mg PO BID 08/13/17 vitamin B complex 1 tab PO QDAY 08/13/17 Bumetanide [Bumex] 1 mg PO DAILY 12/31/19 Factor Five 2 tab PO DAILY 12/31/19 Levothyroxine Sodium [Synthroid] 125 mcg PO DAILY 12/31/19 Liquid Tears 12/31/19 Meloxicam 15 mg PO DAILY 12/31/19 Metoprolol(XL)Succ [Toprol Xl (Beta Jethro)] 25 mg PO DAILY 12/31/19 Paroxetine HCl [Paxil] 40 mg PO DAILY 12/31/19 Ropinirole HCl [Requip] 2 mg PO TID 12/31/19 Primary Care Physician: Ash Conway DO [Primary Care Provider] - Test Results: Test results from this visit will be discussed in further detail at your follow- up appointment, if applicable. Please Follow Up With: Ramonita Broderick DPM When: [facility] Call [phone]
--- NOTE | 2020-01-02 15:26 | PCM.DC ---
- Discharge Diagnoses Current Active Problems: Current Active and Chronic Problems Ulcer of left foot with fat layer exposed (Acute) Cellulitis of left lower extremity (Acute) Hallux valgus (acquired), left foot (Chronic) Cellulitis (Acute) Osteoarthritis (Chronic) Hypothyroid (Chronic) HTN (hypertension) (Chronic) low T4-T3 conversion Reason(s) for Visit for Discharge Instructions: Left foot infection You will use the following diet at home:: Cardiac Your food should be the consistency of: Regular Your liquids should be the consistency of: Regular/Thin Discharge Activity: Return to Normal Activity Weight Bearing Status: Partial weight bearing - Heel weightbearing left lower extremity with surgical shoe Call your doctor if your incision/area has: Continuous Slow Oozing, Sudden Increased Bleeding, Increased Pain/ Swelling, Increased Redness, Foul Smelling Discharge Call your doctor if you observe: Fever of 101 or Higher, Calf discomfort, Uncontrolled pain Cleanse incision/area with: Soap & Water, - - Change dressing daily with Aquacel Ag to left hallux cover with gauze and. Apply Drew wraps starting on each foot and extending to the legs Additional Instructions: Complete your antibiotics. Keep yourself hydrated. You need repeat blood work done within a week to check on your blood counts as well as your kidney function. Follow-up with your primary care doctor within 2 weeks. Follow-up with Dr. Broderick in 1 week. Follow-up with wound instructions as given. Allergies/Adverse Reactions: Allergies Aminoglycosides Allergy (Verified 12/31/19 13:08) Rash bee pollen [Bee Pollen] Allergy (Verified 12/31/19 13:08) Anaphylaxis celecoxib [From Celebrex] Allergy (Verified 12/31/19 13:08) Itching Sulfa (Sulfonamide Antibiotics) Allergy (Verified 12/31/19 13:08) Rash aspirin Adverse Reaction (Verified 12/31/19 13:08) Other Penicillins Adverse Reaction (Verified 12/31/19 13:08) Rash Medications to take at Discharge cholecalciferol (vitamin D3) 50 mcg (2,000 unit) capsule 5,000 unit PO QODAY 08/13/17 vitamin B complex 1 tab PO QDAY 08/13/17 Bumetanide [Bumex] 1 mg PO DAILY 12/31/19 Levothyroxine Sodium [Synthroid] 125 mcg PO DAILY 12/31/19 Metoprolol(XL)Succ [Toprol Xl (Beta Jethro)] 25 mg PO DAILY 12/31/19 Paroxetine HCl [Paxil] 40 mg PO DAILY 12/31/19 Ropinirole HCl [Requip] 2 mg PO TID 12/31/19 Acetaminophen [Tylenol Tablet] 650 mg PO Q6H PRN PRN tablet 01/02/20 Cefdinir [Omnicef [equiv]] 300 mg PO Q12H 7 Days #14 cap 01/02/20 Doxycycline 100 mg PO BID 7 Days #14 cap 01/02/20 The following prescriptions were given: Doxycycline 100 mg PO BID 7 Days #14 cap Transmission Status: Pending to [id number] Cefdinir [Omnicef [equiv]] 300 mg PO Q12H 7 Days #14 cap Transmission Status: Pending to [id number] Primary Care Physician: Ash Conway DO [Primary Care Provider] - Test Results: Test results from this visit will be discussed in further detail at your follow-up appointment, if applicable. Please Follow Up With: Ramonita Broderick DPM When: [facility] week [facility] Call [phone] Proposed Discharge Date: 01/02/20
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
== END 2020-01-02 16:00 | disposition home or self-care (01) | DRG 872 ==
LOC: ED 15:22 → MS3 17:05
PROVIDERS: Admitting Provider Hospitalist; Emergency Provider Emergency Medicine; PCP Student in an Organized Health Care Education/Training Program; Visit Provider Internal Medicine
DX: A41.9 Sepsis, unspecified organism (principal); L03.116 Cellulitis of left lower limb; L97.522 Non-pressure chronic ulcer of other part of left foot with fat layer exposed; M20.10 Hallux valgus (acquired), unspecified foot; B95.8 Unspecified staphylococcus as the cause of diseases classified elsewhere; B95.5 Unspecified streptococcus as the cause of diseases classified elsewhere; I12.9 Hypertensive chronic kidney disease with stage 1 through stage 4 chronic kidney disease, or unspecified chronic kidney disease; E03.9 Hypothyroidism, unspecified; M19.90 Unspecified osteoarthritis, unspecified site; G25.81 Restless legs syndrome; F32.9 Major depressive disorder, single episode, unspecified; N18.30 Chronic kidney disease, stage 3 unspecified; L90.9 Atrophic disorder of skin, unspecified; Z79.1 Long term (current) use of non-steroidal anti-inflammatories (NSAID); Z79.899 Other long term (current) drug therapy; Z79.890 Hormone replacement therapy; Z83.3 Family history of diabetes mellitus; Z98.51 Tubal ligation status; Z96.659 Presence of unspecified artificial knee joint
CPT/HCPCS: 36415; 71045; 73630; 73718; 80048; 80053; 80076; 81001; 83605; 85025; 85610; 85652; 86140; 87040; 87070; 87075; 87077; 87186; 87205; 87635; 87640; 93005; 93923; 96361; 96365; 96366; 96367; 96372; 96375; 97116; 97162; 97166; 97530; 97535; 99218; 99285; J7030; J7050; A4216; G0378; J0744; U0002

== ENCOUNTER 2020-10-07 16:26 | Inpatient (IN) | payer MEDICARE, SELFPAY ==
[2019-12-31 17:30] VITALS: BMI 27.8
[2020-10-07] VITALS (8 sets, daily range): BP systolic 114–154; BP diastolic 58–71; PULSE 68–91; RESP 16–22; TEMP 36.7–38; O2SAT 94–97; BMI 25.4; BMI 27.1
--- NOTE | 2020-10-07 16:45 | EDS_ITS ---
HPI History of Present Illness Chief Complaint: Complaint Informant: patient Onset/Context/Timing Onset: Today Context: Gradual Onset Current Severity: Mild Maximum Severity: Mild Narrative Narrative: Patient presents secondary to fever. Symptoms started today. Patient reports having urinary incontinence at home with frequency. She does report some back pain. Temperature at home was 102.5. Last dose of Tylenol was 4 hours ago. Patient does report some nausea but no vomiting or diarrhea. No significant cough or shortness of breath. She is vaccinated against Covid. [facility] Medical History (Updated 10/07/20 @ 21:[address] Tricia Donahue MD) HTN (hypertension) Hypothyroid Osteomyelitis Home Medications cholecalciferol (vitamin D3) 50 mcg (2,000 unit) capsule 5,000 unit PO QODAY 08/13/17 [History Last Taken Unknown] vitamin B complex 1 tab PO QDAY 08/13/17 [History Last Taken Unknown] acetaminophen 650 mg PO Q6H PRN PRN tab 01/02/20 [Rx Last Taken Unknown] metoprolol succinate 25 mg PO DAILY 30 Days #30 tab 01/02/20 [Rx Last Taken Unknown] paroxetine HCl 40 mg PO DAILY 30 Days #30 tab 01/02/20 [Rx Last Taken Unknown] hydrochlorothiazide 25 mg PO DAILY 10/07/20 [History Last Taken Unknown] levothyroxine 137 mcg PO DAILY 10/07/20 [History Last Taken Unknown] oxybutynin chloride 10 mg PO DAILY 10/07/20 [History Last Taken Unknown] pregabalin [Lyrica] 25 mg PO TID 10/07/20 [History Last Taken Unknown] Allergy/AdvReac Type Severity Reaction Status Date / Time Aminoglycosides Allergy Rash Verified 10/07/20 16:29 bee pollen [Bee Pollen] Allergy Anaphylaxis Verified 10/07/20 16:29 celecoxib [From Celebrex] Allergy Itching Verified 10/07/20 16:29 Sulfa (Sulfonamide Allergy Rash Verified 10/07/20 16:29 Antibiotics) aspirin AdvReac Other Verified 10/07/20 16:29 Penicillins AdvReac Rash Verified 10/07/20 16:29 Family History Sister Cancer Mother Diabetes Heart disease Surgical History h/o tonsilectomy H/O total knee replacement H/O tubal ligation Social History Smoking Status: Never smoker ROS ROS ED Constitutional Constitutional ED: Reports chills and fever(s) Eyes Eyes: Denies change in vision ENT ENT ED: Denies sore throat Cardiovascular Cardiovascular: Denies chest pain Respiratory/Chest Respiratory/Chest: Denies cough or dyspnea Gastrointestinal Gastrointestinal: Reports nausea; Denies abdominal pain, diarrhea or vomiting Genitourinary Genitourinary ED: Reports urinary frequency; Denies dysuria Musculoskeletal Musculoskeletal: Reports back pain Integumentary Reports Abrasions and rash Neurologic Neurologic: Denies headache(s) or weakness Psychiatric Psychiatric: Denies anxiety or depression Allergic/Immunologic Allergic/Immunologic ED: Denies urticaria EXAM Physical Exam Const Vital Signs: 10/07/20 16:27 10/07/20 16:29 10/07/20 17:29 Temperature 100.4 F H 100.4 F H 98.1 F Temperature Source Oral Oral Oral Pulse Rate 84 84 91 Respiratory Rate 16 16 18 Blood Pressure 118/63 118/63 133/58 H Blood Pressure Mean 81 81 83 Pulse Ox 96 96 94 Oxygen Delivery Method 10/07/20 18:00 10/07/20 20:38 Temperature 98.1 F 98.9 F Temperature Source Oral Oral Pulse Rate 91 82 Respiratory Rate 18 22 H Blood Pressure 133/58 H 114/68 Blood Pressure Mean 83 83 Pulse Ox 94 96 Oxygen Delivery Method Room Air Positive well nourished and well developed General Appearance ED: well developed HEENT Reports moist mucous membranes Eyes PERRL and EOMs intact bilaterally Neck supple Chest Wall inspection of chest normal and palpation of chest normal Resp normal respiratory effort and clear to auscultation bilaterally Cardio regular rate and regular rhythm GI normal to inspection, nondistended, normoactive bowel sounds and non-tender Palpation: soft Back/Spine no CVA tenderness Extremity Extremity Narrative: Mild erythema consistent with chronic venous skin changes over the right lower extremity. Overlying abrasions noted. Neuro oriented x3 Sensorium / Orientation: alert Psych mental status grossly normal MDM MDM MDM Narrative Medical decision making narrative: Chest x-ray, labs, urinalysis, Covid swab obtained. Blood and urine cultures were obtained. Lab Data Attestation: I reviewed the patient's lab results. Labs: Laboratory Results - last 24 hr 10/07/20 10/07/20 10/07/20 17:00 17:00 17:00 WBC 16.1 H RBC 3.30 L Hgb 10.2 L Hct 30.5 L MCV 92.4 MCH 30.9 MCHC 33.4 RDW Std Deviation 46.0 H RDW Coeff of Zaheer 13.5 Plt Count 270 MPV 10.0 Immature Gran % (Auto) 1.400 H Neut % (Auto) 87.1 H Lymph % (Auto) 5.0 L [place] % (Auto) 6.0 Eos % (Auto) 0.1 Baso % (Auto) 0.4 Absolute Neuts (auto) 14.1 H Absolute Lymphs (auto) 0.81 L Nucleated RBC % 0 Sodium 139 Potassium 3.4 L Chloride 103 Carbon Dioxide 29.0 Anion Gap 7 BUN 26 H Creatinine 1.11 H Estim Creat Clear Calc 35.49 Est GFR (MDRD) Af Amer 61 Est GFR (MDRD) Non-Af 50 L BUN/Creatinine Ratio 23.4 H Glucose 142 H Lactic Acid 1.4 Calcium 9.3 Urine Color Urine Clarity Urine pH Ur Specific [place] Urine Protein Urine Glucose (UA) Urine Ketones Urine Occult Blood Urine Nitrite Urine Bilirubin Urine Urobilinogen Ur Leukocyte Esterase Urine RBC Urine WBC Ur Squamous Epith Cells Urine Bacteria Urine Mucus 10/07/20 17:15 WBC RBC Hgb Hct MCV MCH MCHC RDW Std Deviation RDW Coeff of Zaheer Plt Count MPV Immature Gran % (Auto) Neut % (Auto) Lymph % (Auto) [place] % (Auto) Eos % (Auto) Baso % (Auto) Absolute Neuts (auto) Absolute Lymphs (auto) Nucleated RBC % Sodium Potassium Chloride Carbon Dioxide Anion Gap BUN Creatinine Estim Creat Clear Calc Est GFR (MDRD) Af Amer Est GFR (MDRD) Non-Af BUN/Creatinine Ratio Glucose Lactic Acid Calcium Urine Color Yellow Urine Clarity Clear Urine pH 6.5 Ur Specific [place] 1.015 Urine Protein 15 H Urine Glucose (UA) Normal Urine Ketones 5 H Urine Occult Blood Negative Urine Nitrite Negative Urine Bilirubin Negative Urine Urobilinogen 1 H Ur Leukocyte Esterase Negative Urine RBC 0 SEEN Urine WBC 0 SEEN Ur Squamous Epith Cells 0-5 SEEN Urine Bacteria 0 SEEN Urine Mucus 0 SEEN Radiography Chest X-Ray - ED: 1 View, Read by ED Physician and Chronic Changes Diagnostic Testing: Radiology Impression Chest X-Ray 10/07/20 17:10 IMPRESSION: No acute radiographic abnormalities. Mild cardiomegaly. Electronically Signed: Ernie Kay MD at 18:15 EDT Tel , Service support , Abdomen/Pelvis CT 10/07/20 20:21 IMPRESSION: 1. Calcified posterior uterine fibroid noted. 2. Small 5.69 cm abdominal hernia with mesenteric fat herniated into the posterior lateral abdominal wall muscle. 3. Colonic diverticulosis 4. Moderate stool retention throughout the colon Electronically Signed: Graham Leahy MD at 21:33 EDT , Service support , Treatment and Re-Evaluation Comments:: Initial blood work returns with white count elevated at 16. Urinalysis is clean. Chest x-ray reveals no evidence of infiltrate per my interpretation. Radiologist interpretation is reviewed. Covid swab is negative. Patient does have mild erythema noted to her right lower extremity, but I do not know that this is enough to account for her significant elevation in white count and fever. In light of this CT scan of the abdomen and pelvis is performed. This reveals no acute findings. Test results discussed with patient and family at bedside. We will give her a dose of vancomycin as she does have allergies listed to penicillin, sulfa, aminoglycosides. I did recommend observation overnight to ensure improvement of her white counts and prelim results on her blood cultures. I will speak with the hospitalist. Discharge Plan Triage Chief Complaint: Complaint ED Provider: Tricia Donahue Dx/Rx/DC Orders Clinical Impression: Cellulitis, Fever Prescriptions: No Action vitamin B complex [B Complex-Vitamin B12] tablet 1 tab PO QDAY RF: 0 cholecalciferol (vitamin D3) 2,000 unit capsule 5,000 unit PO QODAY RF: 0 acetaminophen 325 MG tablet 650 mg PO Q6H PRN PRN (Reason: Pain Score 1-10/Temp > 100.7 F) RF: 0 metoprolol succinate 25 MG tablet 25 mg PO DAILY 30 Days Qty: 30 RF: 0 paroxetine HCl 40 MG tablet 40 mg PO DAILY 30 Days Qty: 30 RF: 0 oxybutynin chloride 10 mg Tablet Extended Release 24hr 10 mg PO DAILY RF: 0 hydrochlorothiazide 25 mg Tablet 25 mg PO DAILY RF: 0 pregabalin [Lyrica] 25 mg Capsule 25 mg PO TID RF: 0 levothyroxine 125 MCG tablet 137 mcg PO DAILY RF: 0 Primary Care Provider: Ash Conway Referrals: Ash Conway DO [Primary Care Provider] - Disposition Disposition: Acute Care Hospital [facility]
--- NOTE | 2020-10-07 17:10 | RAD_ITS ---
INDICATION: fever EXAMINATION/TECHNIQUE: X-RAY - XR Chest 1 View COMPARISON: 12/31/2019. FINDINGS: The lungs are clear. The heart is mildly enlarged. No pleural effusion or pneumothorax. No acute osseous abnormalities. RAD/Chest 1 View (Portable) IMPRESSION: No acute radiographic abnormalities. Mild cardiomegaly. Electronically Signed: Ernie Kay MD at 18:15 EDT Tel , Service support ,
[2020-10-07 17:15] LABS: Absolute Lymphocyte Count 0.81 X10^3/uL (0.83-4.51); Absolute Neutrophil Count 14.1 X10^3/uL (2.0-7.7); Basophil# 0.06 X10^3/uL; Basophil% 0.4 % (0-1); Eosinophil# 0.02 X10^3/uL; Eosinophils% 0.1 % (0-5); Hematocrit 30.5 % (37-47); Hemoglobin 10.2 g/dL (12.0-15.0); Lymphocyte # 0.81 X10^3/ul (0.83-4.51); Mean Corp Hgb Conc 33.4 g/dL (32-36); Mean Corpuscular Hgb 30.9 pg (27.0-32.0); Mean Corpuscular Volume 92.4 fL (81-99); Monocyte# 0.96 X10^3/uL; NRBC Flagged by Analyzer 0 % (0-5); Neutrophil # 14.05 X10^3/uL (2.7-7.7); Neutrophil % 87.1 % (47-70); Platelet Count 270 K/mm3 (150-450); RBC Distribution Width CV 13.5 % (11.6-14.6); White Blood Count 16.1 K/mm3 (4.4-11.0)
[2020-10-07 17:25] LABS: Bacteria 0 SEEN /hpf (None Seen); Mucous, Urine 0 SEEN /hpf (<or=2+); Red Blood Cells-Urine 0 SEEN /hpf (0-5); White Blood Cells 0 SEEN /hpf (0-5)
[2020-10-07 17:27] LABS: Anion Gap 7 (5-15); BUN 26 mg/dL (7-18); BUN/Creat Ratio 23.4 RATIO (10-20); Calcium,Total 9.3 mg/dL (8.5-10.1); Chloride 103 mmol/L (98-107); Creatinine, Serum 1.11 mg/dL (0.55-1.02); EST Glomerular Filtration Rate 50 mL/min (>60); Est Glom Filt Rate - Afr Amer 61 mL/min (>60); Estimated Creatinine Clearance 35.49 ml/min; Glucose 142 mg/dL (74-106); Potassium 3.4 mmol/L (3.5-5.1); Sodium Level 139 mmol/L (136-145)
[2020-10-07 17:29] LABS: Color, Urine Yellow (Yellow); Glucose, Dipstick Normal (Normal); Ketone-Dipstick 5 mg/dl (Negative); Leukocyte Esterase-Dipstick Negative /ul (Negative); Nitrite-Dipstick Negative (Negative); Occult Blood-Urine Negative /ul (Negative); Protein-Dipstick 15 mg/dl (Negative); Specific Gravity, Urine 1.015 (1.002-1.030); Urine Bilirubin Dipstick Negative (Negative); Urine Clarity Clear (Clear); Urine Urobilinogen 1 mg/dl (Normal); Urine pH 6.5 (5.0 - 8.0)
[2020-10-07 17:37] LABS: Squamous Epithelial Cells - UA 0-5 SEEN /hpf (5-10)
[2020-10-07 17:39] LABS: Lactic Acid 1.4 mmol/L (0.4-1.9)
--- NOTE | 2020-10-07 20:21 | CT_ITS ---
STUDY: CT ABDOMEN AND PELVIS WITH CONTRAST REASON FOR EXAM: Female, 80 years old. abdominal pain -- IV PO Contrast RADIATION DOSAGE (If Supplied By Facility): CTDIvol = ( 8.48 ) mGy, DLP = ( 640.55 ) mGycm TECHNIQUE: Transaxial images were obtained from the dome of the diaphragm to the symphysis pubis with oral contrast. Oral and amp; IV Gastrografin and amp; 100mL Isovue-300 was administered. Sagittal and coronal images were reconstructed. Individualized dose optimization techniques were used for this CT. COMPARISON: None. FINDINGS: There are chronic interstitial fibrotic changes of the lung bases. The visualized portions of the heart are within normal limits. Normal liver. Normal gallbladder and extrahepatic biliary system. Normal spleen. Normal pancreas. Normal bilateral adrenal glands. Normal right kidney. Normal left kidney. There is a large hiatal hernia composed mostly of the fundus of the stomach. Normal small intestine. There are multiple colonic diverticula consistent with diverticulosis. The appendix is visualized and appears normal. There is moderate stool retention throughout the colon. There is diffuse atherosclerotic calcification of the abdominal aorta, without a demonstrated aneurysm. Normal inferior vena cava. Normal retroperitoneum. Normal urinary bladder. Calcified posterior uterine fibroid noted. Small 5.69 cm abdominal hernia with mesenteric fat herniated into the posterior lateral abdominal wall muscle. Small fat-containing right inguinal hernia noted. Normal abdominal wall. There are diffuse degenerative changes of the visualized lumbar spine. CT/Abdomen/Pelvis WITH Contrast IMPRESSION: 1. Calcified posterior uterine fibroid noted. 2. Small 5.69 cm abdominal hernia with mesenteric fat herniated into the posterior lateral abdominal wall muscle. 3. Colonic diverticulosis 4. Moderate stool retention throughout the colon Electronically Signed: Graham Leahy MD at 21:33 EDT , Service support ,
--- NOTE | 2020-10-07 21:58 | PCM.HP.STD ---
HPI - General General Date of Admission: 10/07/20 Date of Service: 10/07/20 Chief Complaint: Fever, malaise, urine incontinence - 1 day HPI Narrative [place], is a 80 F who presents with feeling unwell started last night. She developed a fever this afternoon of 102F. Patient lives with her daughter who is a nurse. She denied any sick contact. She denied any upper respiratory illness or diarrhea. Patient is not usually in continent. She is still having incontinence of urine today. That made her daughter know that she was getting sick. Patient is not on oxygen at home. Her temp is 100.4F. Her WBC count was 16.1, with neutrophilia, hemoglobin is 10.2, platelet count is 270. Sodium is 139, potassium 3.4, chloride 103, bicarbonate 29, BUN 26, creatinine 1.11, lactic acid 1.4, UA unremarkable. Chest x-ray was unremarkable. CT of the abdomen and pelvis showed moderate stool retention, small 5.69 cm abdominal hernia with mesenteric fat herniated into the posterior lateral abdominal wall muscle [facility] Medical History HTN (hypertension) Hypothyroid Osteomyelitis Home Medications cholecalciferol (vitamin D3) 50 mcg (2,000 unit) capsule 5,000 unit PO QODAY 08/13/17 [History Last Taken Unknown] vitamin B complex 1 tab PO QDAY 08/13/17 [History Last Taken Unknown] acetaminophen 650 mg PO Q6H PRN PRN tab 01/02/20 [Rx Last Taken Unknown] metoprolol succinate 25 mg PO DAILY 30 Days #30 tab 01/02/20 [Rx Last Taken Unknown] paroxetine HCl 40 mg PO DAILY 30 Days #30 tab 01/02/20 [Rx Last Taken Unknown] hydrochlorothiazide 25 mg PO DAILY 10/07/20 [History Last Taken Unknown] levothyroxine 137 mcg PO DAILY 10/07/20 [History Last Taken Unknown] oxybutynin chloride 10 mg PO DAILY 10/07/20 [History Last Taken Unknown] pregabalin [Lyrica] 25 mg PO TID 10/07/20 [History Last Taken Unknown] Allergy/AdvReac Type Severity Reaction Status Date / Time Aminoglycosides Allergy Rash Verified 10/07/20 16:29 bee pollen [Bee Pollen] Allergy Anaphylaxis Verified 10/07/20 16:29 celecoxib [From Celebrex] Allergy Itching Verified 10/07/20 16:29 Sulfa (Sulfonamide Allergy Rash Verified 10/07/20 16:29 Antibiotics) aspirin AdvReac Other Verified 10/07/20 16:29 Penicillins AdvReac Rash Verified 10/07/20 16:29 Family History Sister Cancer Mother Diabetes Heart disease Surgical History h/o tonsilectomy H/O total knee replacement H/O tubal ligation Social History Smoking Status: Never smoker ROS ROS Narrative Constitutional: Reports: Malaise, Weakness, Fatigue, Fever, Chills. Denies: Anorexia, Night Sweats, Weight Change Eyes: Denies: Blurred vision, Cataracts, Conjunctivae Inflammation, Pain, Redness, Vision Change HEENT: Denies: Difficulty Hearing, Difficulty Swallowing, Head Aches, Hearing Changes, Sinus Congestion, Sinus Drainage Cardiovascular: Denies: Chest Pain, Orthopnea, Palpitations Respiratory: Denies: Cough, Shortness of breath at rest, Sputum production Gastrointestinal: Denies: Abdominal Pain, Nausea, Vomiting Genitourinary: Denies: Dysuria Musculoskeletal: Denies: Joint Pain, Joint stiffness, Joint swelling, Joint Tenderness Skin: Denies: Rash, Wounds Neurological: Denies: Numbness, Tingling, Focal weakness Vital Signs Vital Signs Vital Signs: 10/07/20 16:27 10/07/20 16:29 10/07/20 17:29 Temperature 100.4 F H 100.4 F H 98.1 F Temperature Source Oral Oral Oral Pulse Rate 84 84 91 Respiratory Rate 16 16 18 Blood Pressure 118/63 118/63 133/58 H Blood Pressure Mean 81 81 83 Pulse Ox 96 96 94 Oxygen Delivery Method 10/07/20 18:00 10/07/20 20:38 Temperature 98.1 F 98.9 F Temperature Source Oral Oral Pulse Rate 91 82 Respiratory Rate 18 22 H Blood Pressure 133/58 H 114/68 Blood Pressure Mean 83 83 Pulse Ox 94 96 Oxygen Delivery Method Room Air Weight Weight: 67.132 kg Body Mass Index (BMI) 25.4 Physical Exam Narrative Physical exam: General: Alert, Oriented x3, Cooperative, No apparent distress, appears frail HEENT: Atraumatic Oral: Moist Mucosa Neck: Supple Lungs: Clear to auscultation Cardiovascular: HS I+II, regular, no murmurs Abdomen: Bowel Sounds Present, Soft, Non Tender Extremities:Bilateral pedal edema +1 Skin: Erythema of both legs, worse on the right, chronic rash with flaking of the skin, differential warmth of the legs, from the ankle to proximal one third of the leg Neurological: Grossly intact Psych/Mental Status: Appropriate Results Lab / Micro Data Result Diagrams: 10/07/20 17:00 10/07/20 17:00 Labs: Laboratory Results - last 24 hr 10/07/20 17:00: WBC 16.1 H, RBC 3.30 L, Hgb 10.2 L, Hct 30.5 L, MCV 92.4, MCH 30.9, MCHC 33.4, RDW Std Deviation 46.0 H, RDW Coeff of Zaheer 13.5, Plt Count 270, MPV 10.0, Immature Gran % (Auto) 1.400 H, Neut % (Auto) 87.1 H, Lymph % (Auto) 5.0 L, [place] % (Auto) 6.0, Eos % (Auto) 0.1, Baso % (Auto) 0.4, Absolute Neuts (auto) 14.1 H, Absolute Lymphs (auto) 0.81 L, Nucleated RBC % 0 10/07/20 17:00: Sodium 139, Potassium 3.4 L, Chloride 103, Carbon Dioxide 29.0, Anion Gap 7, BUN 26 H, Creatinine 1.11 H, Estim Creat Clear Calc 35.49, Est GFR (MDRD) Af Amer 61, Est GFR (MDRD) Non-Af 50 L, BUN/Creatinine Ratio 23.4 H, Glucose 142 H, Calcium 9.3 10/07/20 17:00: Lactic Acid 1.4 10/07/20 17:15: Urine Color Yellow, Urine Clarity Clear, Urine pH 6.5, Ur Specific [place] 1.015, Urine Protein 15 H, Urine Glucose (UA) Normal, Urine Ketones 5 H, Urine Occult Blood Negative, Urine Nitrite Negative, Urine Bilirubin Negative, Urine Urobilinogen 1 H, Ur Leukocyte Esterase Negative, Urine RBC 0 SEEN, Urine WBC 0 SEEN, Ur Squamous Epith Cells 0-5 SEEN, Urine Bacteria 0 SEEN, Urine Mucus 0 SEEN Micro: Microbiology 10/07/20 16:53 Mucosa - Nose SARS-CoV-2 Antigen (Rapid) - Final Radiology Impression Chest X-Ray 10/07/20 17:10 IMPRESSION: No acute radiographic abnormalities. Mild cardiomegaly. Electronically Signed: Ernie Kay MD at 18:15 EDT Tel , Service support , Abdomen/Pelvis CT 10/07/20 20:21 IMPRESSION: 1. Calcified posterior uterine fibroid noted. 2. Small 5.69 cm abdominal hernia with mesenteric fat herniated into the posterior lateral abdominal wall muscle. 3. Colonic diverticulosis 4. Moderate stool retention throughout the colon Electronically Signed: Graham Leahy MD at 21:33 EDT , Service support , Assessment & Plan Assessment/Plan (1) Cellulitis: QUALIFIERS: Site of cellulitis: extremity Site of cellulitis of extremity: lower extremity Laterality: unspecified laterality Qualified Code(s): L03.119 - Cellulitis of unspecified part of limb (2) Sepsis: QUALIFIERS: Sepsis type: sepsis due to unspecified organism Sepsis acute organ dysfunction status: unspecified Qualified Code(s): A41.9 - Sepsis, unspecified organism PLAN: 1. 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 Hypokalemia, replaced, recheck in am 3. CKD stage IIIa, creatinine is about at baseline, will trend 4. Rest of chronic home medications including hypertension, hypothyroidism, urinary incontinence, chronic back pain, depression -remained stable and complicates care, continue home medications Charges/Coding Visit Charges Inpatient E&M: 82104 Init Hosp L3
[2020-10-07] MEDS: 0.9% Normal Saline 1,000 ML 75 ML IV (23:04)
[2020-10-07] MEDS: Potassium Chloride Oral Tablet 20 MEQ 60 MEQ PO (23:11)
[2020-10-07] MEDS: Heparin Injection (Vial) 5,000 UNIT/ML VIAL 5000 UNIT SC (23:36)
[2020-10-07] MEDS: Vancomycin IV 1,000 MG/200 ML BAG 200 MG IV (23:36)
[2020-10-07] MEDS: Ammonium Lactate 225 gm Bottle 1 APPLIC TOPICAL (23:43)
--- NOTE | 2020-10-08 00:27 | PCM.RX.CS ---
Consult Pharmacy has been consulted to manage selected antiobiotic: Vancomycin Type of Consult: New start Suspected Infection: Sepsis, Skin/Soft tissue Prior Doses of Antibiotics Received/Current Regimen: Medications Vancomycin HCl (Vancomycin) 1,000 mg in 200 mls @ 200 mls/hr IV Q24H GARRETT Discontinued Medications Vancomycin HCl (Vancomycin) 1,000 mg in 200 mls @ 200 mls/hr 15 mg/kg (1000 mg) IV X1 ONE Stop: 10/07/20 22:38 Last Admin: 10/07/20 23:36 Dose: 200 mls/hr Labs: Sodium 139 mmol/L (136-145) 10/07/20 17:00 Potassium 3.4 mmol/L (3.5-5.1) L 10/07/20 17:00 Chloride 103 mmol/L (98-107) 10/07/20 17:00 Carbon Dioxide 29.0 mmol/L (21.0-32.0) 10/07/20 17:00 Anion Gap 7 (5-15) 10/07/20 17:00 BUN 26 mg/dL (7-18) H 10/07/20 17:00 Creatinine 1.11 mg/dL (0.55-1.02) H 10/07/20 17:00 Est GFR (MDRD) Af Amer 61 mL/min (>60) 10/07/20 17:00 Est GFR (MDRD) Non-Af 50 mL/min (>60) L 10/07/20 17:00 BUN/Creatinine Ratio 23.4 RATIO (10-20) H 10/07/20 17:00 Glucose 142 mg/dL (74-106) H 10/07/20 17:00 Microbiology: Microbiology 10/07/20 16:53 Mucosa - Nose SARS-CoV-2 Antigen (Rapid) - Final Weight used for dosin.2 kg Estimated Creatinine Clearance: 35.5 Goal Trough: 15-20 mcg/mL Pharmacy Plan for Drug Dosing: Pharmacy Service will continue to monitor and adjust dosing as required. Follow-Up Labs: Trough Vancomycin Labs to be done on [date and time ordered]: 10/09/20 @2300
[2020-10-08] MEDS: Pregabalin 25 MG Capsule 50 MG PO ×2 (00:42→22:36)
[2020-10-08] MEDS: Ammonium Lactate 225 gm Bottle 1 APPLIC TOPICAL ×3 (05:21→22:16)
[2020-10-08] MEDS: Cefazolin 1 GM/50 ML BAG IV ×3 (05:21→22:07)
[2020-10-08] MEDS: Heparin Injection (Vial) 5,000 UNIT/ML VIAL 5000 UNIT SC ×3 (05:22→22:15)
[2020-10-08] MEDS: Levothyroxine 137 MCG Tablet PO (05:24)
[2020-10-08] MEDS: Magnesium Hydroxide 30 ML UDC PO (05:27)
[2020-10-08 05:35] VITALS: BP 128/65; PULSE 71; RESP 18; TEMP 37.2; O2SAT 96
[2020-10-08] MEDS: Pregabalin 25 MG Capsule PO ×2 (06:46→14:24)
[2020-10-08 07:50] LABS: Absolute Neutrophil Count 8.6 X10^3/uL (2.0-7.7); Basophil# 0.05 X10^3/uL; Basophil% 0.4 % (0-1); Eosinophil# 0.07 X10^3/uL; Eosinophils% 0.6 % (0-5); Hematocrit 30.3 % (37-47); Lymphocyte % 16.7 % (19-41); Mean Corpuscular Hgb 30.7 pg (27.0-32.0); Mean Corpuscular Volume 92.9 fL (81-99); Mean Platelet Vol. 9.9 fl (6.2-12.0); Monocyte# 0.81 X10^3/uL; Monocyte% 7.1 % (0-10); NRBC Flagged by Analyzer 0 % (0-5); Neutrophil # 8.55 X10^3/uL (2.7-7.7); Platelet Count 243 K/mm3 (150-450); RBC Distribution Width CV 13.7 % (11.6-14.6); RBC Distribution Width SD 46.3 fl (35.1-43.9); Red Blood Count 3.26 M/mm3 (4.2-5.4); White Blood Count 11.4 K/mm3 (4.4-11.0)
[2020-10-08 08:13] LABS: ALB/GLOB Ratio 0.8 RATIO (0.9-2.4); AST(SGOT) 22 U/L (15-37); Alanine Aminotransfer ALT/SGPT 20 U/L (13-56); Albumin, Serum 2.9 g/dL (3.2-5.0); Alkaline Phosphatase 131 U/L (45-117); Anion Gap 5 (5-15); BUN 21 mg/dL (7-18); BUN/Creat Ratio 22.5 RATIO (10-20); Chloride 103 mmol/L (98-107); Creatinine, Serum 0.93 mg/dL (0.55-1.02); EST Glomerular Filtration Rate 62 mL/min (>60); Est Glom Filt Rate - Afr Amer 75 mL/min (>60); Estimated Creatinine Clearance 38.79 ml/min; Globulin 3.8 g/dL (2.2-4.2); Glucose 111 mg/dL (74-106); Magnesium 1.9 mg/dL (1.6-2.6); Potassium 3.8 mmol/L (3.5-5.1); Protein, Total 6.7 g/dL (6.4-8.2); Sodium Level 138 mmol/L (136-145)
--- NOTE | 2020-10-08 08:55 | CASEMGMT ---
BISMARK COLMENARES Assessment: Face to Face with pt for initial transition planning/care coordination assessment. BISMARK COLMENARES introduced self and role at [facility], pt voices understanding and consents to assessment. Pt is A/O x4 and answers all questions appropriately at this time. Pt sitting up in chair in no distress. Care providers, pharmacy, and demographics verified/updated. Admitting Dx:sepsis/cellulitis PCP:Man Specialists:[facility], ortho; Pt states she is supposed to be getting a knee replacement. [facility] Insurance: Edith ARAUJO [facility] Prescription Benefit: yes LW/HPOA: Pt states she has a LW and DPOA. She states her DPOA is her dtr Ernestina Burkett. Pt is aware that only her LW is on file at [facility] and she may bring in her DPOA to get scanned into the chart. LNOK: Ernestina Burkett, dtr Living Arrangements: Pt lives in a two story house with 5 steps to enter with a rail on each side alone. Pt states her dtr has been spending the nights with her since she has not been feeling well. Pt states she is I in ADL's and denies concerns at home. Transportation: Pt states she used to drive but cannot as she cannot turn her head as she would need to. She states her dtr transports her to medical appts and denies concerns witht transportation. DME/HHC/SNF: Pt has a cane, walker, lift chair, shower chair from when her passed 3 years ago. Pt uses the cane normally. Pt denies history of HHC or SNF stays. Pt states no concerns with going home at time of dc. She feels her strength is good. Pt states no further concerns/needs. CM to follow. Advised pt to ask CM if any further question/concerns/needs arise, voices understanding. Pt Goal: Home Plan: Home with dtr support.
[2020-10-08 09:42] VITALS: BP 112/51; PULSE 74; RESP 18; TEMP 37.3; O2SAT 95
[2020-10-08] MEDS: hydroCHLOROthiazide 25 MG Tablet PO (09:45)
[2020-10-08] MEDS: Vitamin B Comp W-C Capsule 1 CAP PO (09:45)
[2020-10-08] MEDS: Tolterodine Tartrate 2 MG CAP.SA PO (09:45)
[2020-10-08] MEDS: Paroxetine 20 MG Tablet 40 MG PO (09:47)
--- NOTE | 2020-10-08 12:44 | PCM.PROGNOTE ---
Documented by User: KIP Schaefer 10/08/20 13:18 Subjective Subjective Patient seen and examined. Patient states she is feeling much better today. Patient sitting in chair watching TV no distress noted. Objective Data Objective Data Vital Signs: Vital Signs Temp Pulse Resp BP Pulse Ox 99.2 F H 74 18 112/51 L 95 10/08/20 09:42 10/08/20 09:42 10/08/20 09:42 10/08/20 09:42 10/08/20 09:42 Oxygen Delivery Method Room Air Weight: 148 lb 1.6 oz Body Mass Index (BMI) 27.1 Intake & Output: Intake and Output for Last 24 Hours 10/06/20 10/07/20 10/08/20 23:59 23:59 23:59 Intake Total 95 / 295 450 / 450 Output Total 100 / 100 Balance 95 / 195 350 / 350 Medical Nutrition Assessment Dietitian: Nutrition Therapy Diagnosis Start: 10/08/20 12:18 Freq: Status: Active Protocol: Document 10/08/20 12:27 SLA (Rec: 10/08/20 12:28 SLA [id number]) Nutrition Malnutrition Evidence of Malnutrition Exists No Intake Problem Inadequate Oral Intake Etiology related to acute illness Signs/Symptoms as evidenced by ~50% po intake in hospital and 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 Recommendation Dietitian Recommendations/Changes Will change diet to Regular low sodium d/t CKD Lab / Micro Data Result Diagrams: 10/08/20 07:35 10/08/20 07:35 Labs: Laboratory Results - last 24 hr 10/07/20 17:00: WBC 16.1 H, RBC 3.30 L, Hgb 10.2 L, Hct 30.5 L, MCV 92.4, MCH 30.9, MCHC 33.4, RDW Std Deviation 46.0 H, RDW Coeff of Zaheer 13.5, Plt Count 270, MPV 10.0, Immature Gran % (Auto) 1.400 H, Neut % (Auto) 87.1 H, Lymph % (Auto) 5.0 L, [place] % (Auto) 6.0, Eos % (Auto) 0.1, Baso % (Auto) 0.4, Absolute Neuts (auto) 14.1 H, Absolute Lymphs (auto) 0.81 L, Nucleated RBC % 0 10/07/20 17:00: Sodium 139, Potassium 3.4 L, Chloride 103, Carbon Dioxide 29.0, Anion Gap 7, BUN 26 H, Creatinine 1.11 H, Estim Creat Clear Calc 35.49, Est GFR (MDRD) Af Amer 61, Est GFR (MDRD) Non-Af 50 L, BUN/Creatinine Ratio 23.4 H, Glucose 142 H, Calcium 9.3 10/07/20 17:00: Lactic Acid 1.4 10/07/20 17:15: Urine Color Yellow, Urine Clarity Clear, Urine pH 6.5, Ur Specific [place] 1.015, Urine Protein 15 H, Urine Glucose (UA) Normal, Urine Ketones 5 H, Urine Occult Blood Negative, Urine Nitrite Negative, Urine Bilirubin Negative, Urine Urobilinogen 1 H, Ur Leukocyte Esterase Negative, Urine RBC 0 SEEN, Urine WBC 0 SEEN, Ur Squamous Epith Cells 0-5 SEEN, Urine Bacteria 0 SEEN, Urine Mucus 0 SEEN 10/08/20 07:35: WBC 11.4 H, RBC 3.26 L, Hgb 10.0 L, Hct 30.3 L, MCV 92.9, MCH 30.7, MCHC 33.0, RDW Std Deviation 46.3 H, RDW Coeff of Zaheer 13.7, Plt Count 243, MPV 9.9, Immature Gran % (Auto) 0.200, Neut % (Auto) 75.0 H, Lymph % (Auto) 16.7 L, [place] % (Auto) 7.1, Eos % (Auto) 0.6, Baso % (Auto) 0.4, Absolute Neuts (auto) 8.6 H, Absolute Lymphs (auto) 1.90, Nucleated RBC % 0 10/08/20 07:35: Sodium 138, Potassium 3.8, Chloride 103, Carbon Dioxide 30.0, Anion Gap 5, BUN 21 H, Creatinine 0.93, Estim Creat Clear Calc 38.79, Est GFR (MDRD) Af Amer 75, Est GFR (MDRD) Non-Af 62, BUN/Creatinine Ratio 22.5 H, Glucose 111 H, Calcium 9.0, Magnesium 1.9, Total Bilirubin 0.70, AST 22, ALT 20, Alkaline Phosphatase 131 H, Total Protein 6.7, Albumin 2.9 L, Globulin 3.8, Albumin/Globulin Ratio 0.8 L Micro: Microbiology 10/07/20 17:10 Blood Culture (Wb) - Left Forearm Bacteria Detection (PCR) - Final Strep not Strep pneumo 10/07/20 17:10 Blood Culture (Wb) - Left Forearm Blood Culture - Preliminary 10/07/20 16:53 Mucosa - Nose SARS-CoV-2 Antigen (Rapid) - Final Radiography Diagnostic Testing: Radiology Impression Chest X-Ray 10/07/20 17:10 IMPRESSION: No acute radiographic abnormalities. Mild cardiomegaly. Electronically Signed: Ernie Kay MD at 18:15 EDT Tel , Service support , Abdomen/Pelvis CT 10/07/20 20:21 IMPRESSION: 1. Calcified posterior uterine fibroid noted. 2. Small 5.69 cm abdominal hernia with mesenteric fat herniated into the posterior lateral abdominal wall muscle. 3. Colonic diverticulosis 4. Moderate stool retention throughout the colon Electronically Signed: Graham Leahy MD at 21:33 EDT , Service support , Physical Exam Const alert and oriented x3 General Appearance: cooperative HEENT normocephalic and head/scalp atraumatic Eyes conjunctivae normal and no scleral icterus Neck supple and no JVD General: trachea midline Resp normal respiratory effort, normal air movement and clear to auscultation bilaterally Cardio regular rate, regular rhythm, S1 normal heart sound and S2 normal heart sound GI normal to inspection, nondistended, normoactive bowel sounds, soft to palpation and non-tender Extremity normal capillary refill and no clubbing, cyanosis or edema General Extremity: no tenderness to palpation of joints or extremities Skin General Skin Exam: no breakdown and turgor normal Lesions: no lesions Rashes: rashes noted Right lower leg Narrative: Erythema to right lower leg, chronic rash with flaking of skin, warmth Neuro no focal motor deficits and no sensory deficits noted Speech: speech normal Gait (Neuro): normal gait Psych thought process normal, cooperative and affect normal Appearance: appropriate Assessment & Plan Assessment/Plan (1) Cellulitis: QUALIFIERS: Laterality: unspecified laterality Site of cellulitis: extremity Site of cellulitis of extremity: lower extremity Qualified Code(s): L03.119 - Cellulitis of unspecified part of limb (2) Fever: QUALIFIERS: Fever type: unspecified Qualified Code(s): R50.9 - Fever, unspecified PLAN: 1. Sepsis secondary to right lower extremity cellulitis -Patient without fever, leukocytosis improved 11.4 -Blood cultures are pending -Started on IV vancomycin and Ancef; will continue pending blood culture results -Continue Lac-Hydrin to the lower extremities -elevate legs 2. Hypokalemia -Resolved, repeat lab this a.m. 3.8 3. CKD stage IIIa, -creatinine improved 0.93 today -Continue to trend 4. Hypertension -Vital signs stable, will continue home medication regimen -Vital signs per protocol DVT prophylaxis-subcu heparin This patient was seen by Madeleine Hidalgo NP-C under the supervision of Dr. Morales Documented by User: Dr. Phillip Morales DO 10/08/20 13:54 Objective Data Lab / Micro Data Result Diagrams: 10/08/20 07:35 10/08/20 07:35 Charges/Coding Addendum Addendum: Patient seen and examined independently. Data reviewed. I agree with the above note by the nurse practitioner. Patient feeling well at this time. States that the redness of her lower extremities improved. No acute stress and afebrile heart rate regular rate and rhythm plus S1-S2 with a murmurs, rubs. Lungs are clear to auscultation bilaterally. Abdomen soft nontender nondistended normal bowel sounds hepatosplenomegaly. Extremities are with faint erythema of the lower extremities but no warmth. Assessment and plan 1. Possible lower extremity cellulitis. I am not terribly impressed that this actually being cellulitis. The patient does endorse that appears improved. Continue with antibiotics but if cultures come back negative then will discontinue antibiotics altogether. Visit Charges Inpatient E&M: 07199 Subs Hosp L2
[2020-10-08] MEDS: 0.9% Saline Lock 10 ML Syringe IV (14:25)
[2020-10-08 14:44] VITALS: BP 135/66; PULSE 60; RESP 18; TEMP 37.1; O2SAT 97
[2020-10-08 14:49] VITALS: BP 135/66; PULSE 60
[2020-10-08] MEDS: Metoprolol(XL)Succ 25 MG Tablet PO (14:49)
[2020-10-08 18:26] VITALS: BP 125/60; PULSE 62; RESP 16; TEMP 36.9; O2SAT 98
[2020-10-08 23:00] VITALS: BP 142/56; PULSE 57; RESP 16; TEMP 36.9; O2SAT 97
[2020-10-08] MEDS: Vancomycin IV 1,000 MG/200 ML BAG 200 MG IV (23:56)
[2020-10-09] VITALS (8 sets, daily range): BP systolic 123–165; BP diastolic 51–78; PULSE 54–69; RESP 16–18; TEMP 36.5–37.1; O2SAT 94–100
[2020-10-09] MEDS: Cefazolin 1 GM/50 ML BAG IV (06:28)
[2020-10-09] MEDS: Levothyroxine 137 MCG Tablet PO (06:28)
[2020-10-09] MEDS: Heparin Injection (Vial) 5,000 UNIT/ML VIAL 5000 UNIT SC ×3 (06:29→21:32)
[2020-10-09 06:30] LABS: Absolute Lymphocyte Count 1.61 X10^3/uL (0.83-4.51); Absolute Neutrophil Count 4.8 X10^3/uL (2.0-7.7); Basophil# 0.05 X10^3/uL; Basophil% 0.7 % (0-1); Eosinophil# 0.32 X10^3/uL; Eosinophils% 4.2 % (0-5); Hematocrit 31.3 % (37-47); Hemoglobin 10.2 g/dL (12.0-15.0); Lymphocyte # 1.61 X10^3/ul (0.83-4.51); Lymphocyte % 21.3 % (19-41); Mean Corp Hgb Conc 32.6 g/dL (32-36); Mean Corpuscular Hgb 30.6 pg (27.0-32.0); Mean Platelet Vol. 10.6 fl (6.2-12.0); Monocyte# 0.81 X10^3/uL; Monocyte% 10.7 % (0-10); NRBC Flagged by Analyzer 0 % (0-5); Neutrophil # 4.75 X10^3/uL (2.7-7.7); Neutrophil % 62.7 % (47-70); Platelet Count 247 K/mm3 (150-450); RBC Distribution Width CV 13.9 % (11.6-14.6); RBC Distribution Width SD 47.6 fl (35.1-43.9); Red Blood Count 3.33 M/mm3 (4.2-5.4); White Blood Count 7.6 K/mm3 (4.4-11.0)
[2020-10-09] MEDS: Ammonium Lactate 225 gm Bottle 1 APPLIC TOPICAL ×3 (06:31→21:32)
[2020-10-09] MEDS: Pregabalin 25 MG Capsule PO ×2 (06:41→14:34)
[2020-10-09 06:56] LABS: Anion Gap 7 (5-15); BUN 19 mg/dL (7-18); BUN/Creat Ratio 22.7 RATIO (10-20); Calcium,Total 8.8 mg/dL (8.5-10.1); Chloride 103 mmol/L (98-107); Creatinine, Serum 0.84 mg/dL (0.55-1.02); EST Glomerular Filtration Rate 70 mL/min (>60); Est Glom Filt Rate - Afr Amer 84 mL/min (>60); Estimated Creatinine Clearance 42.95 ml/min; Glucose 94 mg/dL (74-106); Potassium 3.8 mmol/L (3.5-5.1); Sodium Level 137 mmol/L (136-145)
[2020-10-09] MEDS: Tolterodine Tartrate 2 MG CAP.SA PO (10:50)
[2020-10-09] MEDS: Cholecalciferol (VIT D3) 25 MCG TABLET (1,000 UNITS) 125 MCG PO (10:50)
[2020-10-09] MEDS: Vitamin B Comp W-C Capsule 1 CAP PO (10:50)
[2020-10-09] MEDS: hydroCHLOROthiazide 25 MG Tablet PO (10:51)
[2020-10-09] MEDS: Paroxetine 20 MG Tablet 40 MG PO (10:52)
--- NOTE | 2020-10-09 13:20 | PCM.PN.HOSP ---
Subjective Subjective Complains of rash on arm. Has had rash on LE for months. Denies wearing long sock or stockings of any kind. Objective Data Objective Data Vital Signs: Vital Signs Temp Pulse Resp BP Pulse Ox 36.9 C 55 L 18 130/52 H 94 10/09/20 08:55 10/09/20 08:55 10/09/20 08:55 10/09/20 08:55 10/09/20 08:55 Oxygen Delivery Method Room Air Weight: 67.177 kg Body Mass Index (BMI) 27.1 Intake & Output: Intake and Output for Last 24 Hours 10/07/20 10/08/20 10/09/20 23:59 23:59 23:59 Intake Total 95 / 295 1127.5 / 1327.5 450 / 450 Output Total 100 / 200 100 / 100 Balance 95 / 195 1027.5 / 1127.5 350 / 350 Medical Nutrition Assessment Dietitian: Nutrition Therapy Diagnosis Start: 10/08/20 12:18 Freq: Status: Active Protocol: Document 10/08/20 12:27 SLA (Rec: 10/08/20 12:28 SLA [id number]) Nutrition Malnutrition Evidence of Malnutrition Exists No Intake Problem Inadequate Oral Intake Etiology related to acute illness Signs/Symptoms as evidenced by ~50% po intake in 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 % (Auto) 10.7 H, Eos % (Auto) 4.2, Baso % (Auto) 0.7, Absolute Neuts (auto) 4.8, Absolute Lymphs (auto) 1.61, Nucleated RBC % 0 10/09/20 04:52: Sodium 137, Potassium 3.8, Chloride 103, Carbon Dioxide 27.0, Anion Gap 7, BUN 19 H, Creatinine 0.84, Estim Creat Clear Calc 42.95, Est GFR (MDRD) Af Amer 84, Est GFR (MDRD) Non-Af 70, BUN/Creatinine Ratio 22.7 H, Glucose 94, Calcium 8.8 Micro: Microbiology 10/07/20 17:15 Urine Catheter - Catheter Urine Culture - Preliminary Culture exhibits no growth. 10/07/20 17:10 Blood Culture (Wb) - Left Forearm Bacteria Detection (PCR) - Final Strep not Strep pneumo 10/07/20 17:10 Blood Culture (Wb) - Left Forearm Blood Culture - Preliminary Streptococcus group G 10/07/20 16:53 Mucosa - Nose SARS-CoV-2 Antigen (Rapid) - Final Physical Exam Const alert and oriented x3 Resp normal respiratory effort, no retractions, no use of accessory muscles and clear to auscultation bilaterally Cardio regular rate, regular rhythm, S1 normal heart sound and S2 normal heart sound GI normal to inspection, nondistended, normoactive bowel sounds, soft to palpation, non-tender and non-distended Skin Skin Narrative: Faint erythema on the right upper extremity forearm. Does have a defined faint but raised macular area on both anterior shins with the right being larger than the left. Neuro Sensorium / Orientation: awake and alert Assessment & Plan Assessment/Plan (1) Cellulitis: QUALIFIERS: Site of cellulitis: extremity Site of cellulitis of extremity: lower extremity Laterality: unspecified laterality Qualified Code(s): L03.119 - Cellulitis of unspecified part of limb (2) Fever: QUALIFIERS: Fever type: unspecified Qualified Code(s): R50.9 - Fever, unspecified PLAN: 1. Possible lower extremity cellulitis. I am not terribly impressed that this actually being cellulitis. I am concerned that these could be allergic in nature, but she has normal eosinophils (which have trended up slightly today). Continue with vancomycin (DC cefazolin qSOFA of 0, therefore, sepsis ruled out. 2. bacteremia 1 of 2 positive for Group G strep repeat BCx drawn 10/09, if repeat Cx positive, conisder TTE continue vancomycin This may be related with the possible cellulitis but no other possibility could be due to inoculation from scratching. 3.Hypokalemia Resolved, repeat lab this a.m. 3.8 4. CKD stage IIIa, stable 5. Hypertension stable 6. DVT prophylaxis-subcu heparin Charges/Coding Visit Charges Inpatient E&M: 31786 Subs Hosp L2
[2020-10-09] MEDS: Metoprolol(XL)Succ 25 MG Tablet PO (14:34)
[2020-10-09] MEDS: Pregabalin 25 MG Capsule 50 MG PO (21:32)
[2020-10-09 23:25] LABS: Vancomycin, Trough Level 11.5 ug/mL (5.0-15.0)
--- NOTE | 2020-10-09 23:43 | PCM.RX.CS ---
Consult Pharmacy has been consulted to manage selected antiobiotic: Vancomycin Type of Consult: Follow-up Suspected Infection: Skin/Soft tissue Prior Doses of Antibiotics Received/Current Regimen: Medications Vancomycin HCl 1,500 mg/ (Sodium Chloride) 530 mls @ 250 mls/hr IV Q24H GARRETT Discontinued Medications Vancomycin HCl (Vancomycin) 1,000 mg in 200 mls @ 200 mls/hr IV Q24H GARRETT Last Admin: 10/09/20 23:38 Dose: Not Given Labs: Sodium 137 mmol/L (136-145) 10/09/20 04:52 Potassium 3.8 mmol/L (3.5-5.1) 10/09/20 04:52 Chloride 103 mmol/L (98-107) 10/09/20 04:52 Carbon Dioxide 27.0 mmol/L (21.0-32.0) 10/09/20 04:52 Anion Gap 7 (5-15) 10/09/20 04:52 BUN 19 mg/dL (7-18) H 10/09/20 04:52 Creatinine 0.84 mg/dL (0.55-1.02) 10/09/20 04:52 Est GFR (MDRD) Af Amer 84 mL/min (>60) 10/09/20 04:52 Est GFR (MDRD) Non-Af 70 mL/min (>60) 10/09/20 04:52 BUN/Creatinine Ratio 22.7 RATIO (10-20) H 10/09/20 04:52 Glucose 94 mg/dL (74-106) 10/09/20 04:52 Vancomycin Trough 11.5 ug/mL (5.0-15.0) 10/09/20 22:42 Microbiology: Microbiology 10/07/20 17:15 Urine Catheter - Catheter Urine Culture - Preliminary Culture exhibits no growth. 10/07/20 17:10 Blood Culture (Wb) - Left Forearm Bacteria Detection (PCR) - Final Strep not Strep pneumo 10/07/20 17:10 Blood Culture (Wb) - Left Forearm Blood Culture - Preliminary Streptococcus group G 10/07/20 16:53 Mucosa - Nose SARS-CoV-2 Antigen (Rapid) - Final Weight used for dosin.2 kg Estimated Creatinine Clearance: 43 Goal Trough: 15-20 mcg/mL Pharmacy Plan for Drug Dosing: Vancomycin trough level of 11.5 was below target range, owing to improvement in kidney function. Will increase dose to 1500mg q24h and draw another trough prior to 3rd dose of new regimen. Pharmacy Service will continue to monitor and adjust dosing as required. Follow-Up Labs: Trough Vancomycin Labs to be done on [date and time ordered]: 10/11/20 @2300
[2020-10-09] MEDS: 0.9% Saline Lock 10 ML Syringe IV (23:46)
[2020-10-10] MEDS: Ammonium Lactate 225 gm Bottle 1 APPLIC TOPICAL ×3 (05:41→22:05)
[2020-10-10] MEDS: Heparin Injection (Vial) 5,000 UNIT/ML VIAL 5000 UNIT SC ×3 (05:41→22:06)
[2020-10-10] MEDS: Pregabalin 25 MG Capsule PO ×2 (05:41→13:38)
[2020-10-10] MEDS: Levothyroxine 137 MCG Tablet PO (05:42)
[2020-10-10 05:51] VITALS: BP 130/71; PULSE 69; RESP 16; TEMP 36.6; O2SAT 96
--- NOTE | 2020-10-10 07:50 | PN.HOSP_ITS ---
Subjective Subjective Patient is a 80-year-old lady admitted with fever and generalized malaise. Patient was found to have erythema and warmth involving both lower extremities right worse than left. Was also found to have a maculopapular rash on both upper extremities. Diagnosis of sepsis secondary to bilateral lower extremities made admitted to regular nursing floor for further management Objective Data Objective Data Vital Signs: Vital Signs Temp Pulse Resp BP Pulse Ox 97.9 F 69 16 130/71 H 96 10/10/20 05:51 10/10/20 05:51 10/10/20 05:51 10/10/20 05:51 10/10/20 05:51 Oxygen Delivery Method Room Air Weight: 67.177 kg Body Mass Index (BMI) 27.1 Intake & Output: Intake and Output for Last 24 Hours 10/08/20 10/09/20 10/10/20 23:59 23:59 23:59 Intake Total 1127.5 / 1327.5 1150 / 1150 530 / 530 Output Total 100 / 200 450 / 450 Balance 1027.5 / 1127.5 700 / 700 530 / 530 Medical Nutrition Assessment Dietitian: Nutrition Therapy Diagnosis Start: 10/08/20 12:18 Freq: Status: Active Protocol: Document 10/08/20 12:27 SLA (Rec: 10/08/20 12:28 SLA [id number]) Nutrition Malnutrition Evidence of Malnutrition Exists No Intake Problem Inadequate Oral Intake Etiology related to acute illness Signs/Symptoms as evidenced by ~50% po intake in hospital and 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 10/07/20 16:53 Mucosa - Nose SARS-CoV-2 Antigen (Rapid) - Final Physical Exam Narrative GENERAL: cooperative HEENT: Atraumatic; EYES; Anicteric, Normal Conjunctiva NECK; supple, normal thyroid, RESPIRATORY: Diminished to auscultation CARDIOVASCULAR: Regular S1 S2, GI: soft, normoactive bowel sounds, : No Renal angle tenderness; EXTREMITIES: No edema, no clubbing, MUSCULOSKELETAL: no muscle waisting NEURO: Awake; no lateralizing signs. SKIN: Erythema and warmth involving both lower extremities right worse than left as well as maculopapular rash on upper extremities PSYCH; Flat affect Assessment & Plan Assessment/Plan (1) Cellulitis: QUALIFIERS: Laterality: unspecified laterality Site of cellulitis: extremity Site of cellulitis of extremity: lower extremity Qualified Code(s): L03.119 - Cellulitis of unspecified part of limb (2) Fever: QUALIFIERS: Fever type: unspecified Qualified Code(s): R50.9 - Fever, unspecified PLAN: Patient is a 80-year-old lady admitted with fever and generalized malaise. Patient was found to have erythema and warmth involving both lower extremities right worse than left. Was also found to have a maculopapular rash on both upper extremities. Diagnosis of sepsis secondary to bilateral lower extremities made admitted to regular nursing floor for further management 1. Sepsis ?Secondary to bilateral lower extremity cellulitis. Patient was started on vancomycin and cefazolin. Cultures sent positive for group G strep. Patient was initially managed with vancomycin and cefazolin the latter which was discontinued due to suspected allergic reaction. Consultation placed to ID 2. Maculopapular rash Probably related to patient underlying strep infection with bacteremia 3. Hypokalemia ?Corrected per protocol 4. Hypothyroidism - Patient is on levothyroxine home dose continued 5. Hypertension - Blood pressure controlled, home medications continued with dose adjustment as needed 6. DVT prophylaxis ?SC heparin Charges/Coding Visit Charges Inpatient E&M: 96650 Subs Hosp L2
[2020-10-10 07:55] VITALS: PULSE 64
[2020-10-10 10:26] VITALS: BP 124/54; PULSE 67; RESP 18; TEMP 37; O2SAT 93
[2020-10-10 10:29] VITALS: PULSE 64
[2020-10-10] MEDS: Tolterodine Tartrate 2 MG CAP.SA PO (10:29)
[2020-10-10] MEDS: hydroCHLOROthiazide 25 MG Tablet PO (10:29)
[2020-10-10] MEDS: Metoprolol(XL)Succ 25 MG Tablet PO (10:29)
[2020-10-10] MEDS: Vitamin B Comp W-C Capsule 1 CAP PO (10:29)
[2020-10-10] MEDS: Paroxetine 20 MG Tablet 40 MG PO (10:29)
--- NOTE | 2020-10-10 14:15 | PCM.CONS.GEN ---
Assessment & Plan Assessment/Plan (1) Cellulitis: PLAN: Improving. Bcx with strep. Rash with PCN. Will narrow abx to ceftriaxone. If tolerates, plan will be for discharge home with po abx. Will follow, thank you HPI Consult Data Date of Consult: 10/10/20 HPI Narrative HPI Narrative: [place] [employer], is a 80 F who presented with several days BLE redness, swelling, pain, itching, chills. No drainage. Arms and neck also itching. Recently on course of po doxy for the same. No n/v/d, no change in taste and smell, is covid vaccinated. Admitted, started on vanc, legs improved. Full ROS performed and neg except as noted above. [facility] Medical History Anxiety Depression GERD (gastroesophageal reflux disease) Hearing loss, left HTN (hypertension) Hypothyroid Hypothyroidism Kidney disease Non-smoker Non-smoker Osteomyelitis Home Medications cholecalciferol (vitamin D3) 50 mcg (2,000 unit) capsule 5,000 unit PO QODAY 08/13/17 [History Last Taken Unknown] vitamin B complex 1 tab PO QDAY 08/13/17 [History Last Taken Unknown] acetaminophen 650 mg PO Q6H PRN PRN tab 01/02/20 [Rx Last Taken Unknown] metoprolol succinate 25 mg PO DAILY 30 Days #30 tab 01/02/20 [Rx Last Taken Unknown] paroxetine HCl 40 mg PO DAILY 30 Days #30 tab 01/02/20 [Rx Last Taken Unknown] hydrochlorothiazide 25 mg PO DAILY 10/07/20 [History Last Taken Unknown] levothyroxine 137 mcg PO DAILY 10/07/20 [History Last Taken Unknown] oxybutynin chloride 10 mg PO DAILY 10/07/20 [History Last Taken Unknown] pregabalin [Lyrica] 25 mg PO TID 10/07/20 [History Last Taken Unknown] Allergy/AdvReac Type Severity Reaction Status Date / Time Aminoglycosides Allergy Rash Verified 10/07/20 16:29 bee pollen [Bee Pollen] Allergy Anaphylaxis Verified 10/07/20 16:29 celecoxib [From Celebrex] Allergy Itching Verified 10/07/20 16:29 Sulfa (Sulfonamide Allergy Rash Verified 10/07/20 16:29 Antibiotics) aspirin AdvReac Other Verified 10/07/20 16:29 Penicillins AdvReac Rash Verified 10/07/20 16:29 Family History Sister Cancer Mother Diabetes Heart disease Surgical History h/o tonsilectomy H/O total knee replacement H/O tubal ligation Social History Smoking Status: Never smoker Physical Exam Const alert and no apparent distress General Appearance: cooperative Exam Limitations: no limitations HEENT head/scalp atraumatic Eyes PERRL and EOMs intact bilaterally Neck supple and No nodes Resp normal air movement and clear to auscultation bilaterally Cardio regular rate and regular rhythm GI normal to inspection, nondistended, normoactive bowel sounds Extremity General Extremity: edema Skin Skin Narrative: RLE redness, mild warmth. Worse than L. 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 10/07/20 17:10 Blood Culture (Wb) - Left Forearm Bacteria Detection (PCR) - Final Strep not Strep pneumo 10/07/20 17:10 Blood Culture (Wb) - Left Forearm Blood Culture - Preliminary Streptococcus group G
[2020-10-10] MEDS: Ceftriaxone 1 GM/50 ML BAG IV (15:46)
[2020-10-10] MEDS: 0.9% Saline Lock 10 ML Syringe IV (15:46)
[2020-10-10 15:52] VITALS: BP 147/62; PULSE 72; RESP 18; TEMP 37.2; O2SAT 98
[2020-10-10 21:37] VITALS: BP 115/61; PULSE 70; RESP 18; TEMP 36.8; O2SAT 94
[2020-10-10] MEDS: Pregabalin 25 MG Capsule 50 MG PO (22:05)
[2020-10-11 03:05] VITALS: BP 130/54; PULSE 73; RESP 18; TEMP 37.5; O2SAT 95
[2020-10-11] MEDS: Levothyroxine 137 MCG Tablet PO (06:11)
[2020-10-11] MEDS: Pregabalin 25 MG Capsule PO ×2 (06:12→15:39)
[2020-10-11] MEDS: Heparin Injection (Vial) 5,000 UNIT/ML VIAL 5000 UNIT SC ×2 (06:12→13:19)
[2020-10-11] MEDS: Ammonium Lactate 225 gm Bottle 1 APPLIC TOPICAL ×2 (06:12→13:19)
[2020-10-11 06:23] LABS: Absolute Lymphocyte Count 1.79 X10^3/uL (0.83-4.51); Absolute Neutrophil Count 3.8 X10^3/uL (2.0-7.7); Basophil# 0.06 X10^3/uL; Basophil% 0.8 % (0-1); Eosinophil# 0.36 X10^3/uL; Hematocrit 29.6 % (37-47); Hemoglobin 9.4 g/dL (12.0-15.0); Lymphocyte # 1.79 X10^3/ul (0.83-4.51); Lymphocyte % 24.9 % (19-41); Mean Corp Hgb Conc 31.8 g/dL (32-36); Mean Corpuscular Hgb 29.8 pg (27.0-32.0); Mean Platelet Vol. 10.4 fl (6.2-12.0); Monocyte# 1.09 X10^3/uL; Monocyte% 15.2 % (0-10); NRBC Flagged by Analyzer 0 % (0-5); Neutrophil # 3.84 X10^3/uL (2.7-7.7); Neutrophil % 53.5 % (47-70); Platelet Count 253 K/mm3 (150-450); RBC Distribution Width CV 13.8 % (11.6-14.6); RBC Distribution Width SD 46.9 fl (35.1-43.9); Red Blood Count 3.15 M/mm3 (4.2-5.4); White Blood Count 7.2 K/mm3 (4.4-11.0)
[2020-10-11 06:47] LABS: Anion Gap 4 (5-15); BUN 18 mg/dL (7-18); BUN/Creat Ratio 21.3 RATIO (10-20); Calcium,Total 8.7 mg/dL (8.5-10.1); Chloride 104 mmol/L (98-107); Creatinine, Serum 0.84 mg/dL (0.55-1.02); EST Glomerular Filtration Rate 69 mL/min (>60); Est Glom Filt Rate - Afr Amer 84 mL/min (>60); Estimated Creatinine Clearance 42.95 ml/min; Glucose 99 mg/dL (74-106); Magnesium 1.9 mg/dL (1.6-2.6); Potassium 3.6 mmol/L (3.5-5.1); Sodium Level 138 mmol/L (136-145)
--- NOTE | 2020-10-11 07:21 | PCM.PN.HOSP ---
Subjective Subjective Patient seen tolerated ceftriaxone initiated by ID. Plan is for patient to be discharged home on Omnicef Objective Data Objective Data Vital Signs: Vital Signs Temp Pulse Resp BP Pulse Ox 99.5 F H 73 18 130/54 H 95 10/11/20 03:05 10/11/20 03:05 10/11/20 03:05 10/11/20 03:05 10/11/20 03:05 Oxygen Delivery Method Room Air Weight: 67.5 kg Body Mass Index (BMI) 27.1 Intake & Output: Intake and Output for Last 24 Hours 10/09/20 10/10/20 10/11/20 23:59 23:59 23:59 Intake Total 1150 / 1150 1284.75 / 1284.75 500 / 500 Output Total 450 / 450 350 / 350 700 / 700 Balance 700 / 700 934.75 / 934.75 -200 / -200 Medical Nutrition Assessment Dietitian: Nutrition Therapy Diagnosis Start: 10/08/20 12:18 Freq: Status: Active Protocol: Document 10/08/20 12:27 CHI (Rec: 10/08/20 12:28 SLA [id number]) Nutrition Malnutrition Evidence of Malnutrition Exists No Intake Problem Inadequate Oral Intake Etiology related to acute illness Signs/Symptoms as evidenced by ~50% po intake in hospital and 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 Recommendation Dietitian Recommendations/Changes Will change diet to Regular low sodium d/t CKD Lab / Micro Data Result Diagrams: 10/11/20 05:54 10/11/20 05:54 Labs: Laboratory Results - last 24 hr 10/11/20 05:54: WBC 7.2, RBC 3.15 L, Hgb 9.4 L, Hct 29.6 L, MCV 94.0, MCH 29.8, MCHC 31.8 L, RDW Std Deviation 46.9 H, RDW Coeff of Zaheer 13.8, Plt Count 253, MPV 10.4, Immature Gran % (Auto) 0.600, Neut % (Auto) 53.5, Lymph % (Auto) 24.9, [place] % (Auto) 15.2 H, Eos % (Auto) 5.0, Baso % (Auto) 0.8, Absolute Neuts (auto) 3.8, Absolute Lymphs (auto) 1.79, Nucleated RBC % 0 10/11/20 05:54: Sodium 138, Potassium 3.6, Chloride 104, Carbon Dioxide 30.0, Anion Gap 4 L, BUN 18, Creatinine 0.84, Estim Creat Clear Calc 42.95, Est GFR (MDRD) Af Amer 84, Est GFR (MDRD) Non-Af 69, BUN/Creatinine Ratio 21.3 H, Glucose 99, Calcium 8.7, Magnesium 1.9 Micro: Microbiology 10/07/20 17:15 Urine Catheter - Catheter Urine Culture - Final Culture exhibits no growth. 10/07/20 17:10 Blood Culture (Wb) - Left Forearm Bacteria Detection (PCR) - Final Strep not Strep pneumo 10/07/20 17:10 Blood Culture (Wb) - Left Forearm Blood Culture - Preliminary Streptococcus group G 10/07/20 16:53 Mucosa - Nose SARS-CoV-2 Antigen (Rapid) - Final Physical Exam Narrative GENERAL: cooperative HEENT: Atraumatic; EYES; Anicteric, Normal Conjunctiva NECK; supple, normal thyroid, RESPIRATORY: Diminished to auscultation CARDIOVASCULAR: Regular S1 S2, GI: soft, normoactive bowel sounds, : No Renal angle tenderness; EXTREMITIES: No edema, no clubbing, MUSCULOSKELETAL: no muscle waisting NEURO: Awake; no lateralizing signs. SKIN: Erythema and warmth involving both lower extremities right worse than left as well as maculopapular rash on upper extremities PSYCH; Flat affect Assessment & Plan Assessment/Plan (1) Cellulitis: QUALIFIERS: Laterality: unspecified laterality Site of cellulitis: extremity Site of cellulitis of extremity: lower extremity Qualified Code(s): L03.119 - Cellulitis of unspecified part of limb (2) Fever: QUALIFIERS: Fever type: unspecified Qualified Code(s): R50.9 - Fever, unspecified PLAN: Patient is a 80-year-old lady admitted with fever and generalized malaise. Patient was found to have erythema and warmth involving both lower extremities right worse than left. Was also found to have a maculopapular rash on both upper extremities. Diagnosis of sepsis secondary to bilateral lower extremities made admitted to regular nursing floor for further management 1. Sepsis ?Secondary to bilateral lower extremity cellulitis. Patient was started on vancomycin and cefazolin. Cultures sent positive for group G strep. Patient was initially managed with vancomycin and cefazolin the latter which was discontinued due to suspected allergic reaction. Consultation placed to ID 2. Maculopapular rash Probably related to patient underlying strep infection with bacteremia 3. Hypokalemia ?Corrected per protocol 4. Hypothyroidism - Patient is on levothyroxine home dose continued 5. Hypertension - Blood pressure controlled, home medications continued with dose adjustment as needed 6. DVT prophylaxis ?SC heparin Charges/Coding Visit Charges Inpatient E&M: 41337 Subs Hosp L2
[2020-10-11 09:50] VITALS: BP 111/57; PULSE 64; RESP 18; TEMP 36.8; O2SAT 92
[2020-10-11] MEDS: Vitamin B Comp W-C Capsule 1 CAP PO (09:58)
[2020-10-11 09:59] VITALS: PULSE 64
[2020-10-11] MEDS: hydroCHLOROthiazide 25 MG Tablet PO (09:59)
[2020-10-11] MEDS: Metoprolol(XL)Succ 25 MG Tablet PO (09:59)
[2020-10-11] MEDS: Tolterodine Tartrate 2 MG CAP.SA PO (09:59)
[2020-10-11] MEDS: Paroxetine 20 MG Tablet 40 MG PO (09:59)
[2020-10-11] MEDS: Cholecalciferol (VIT D3) 25 MCG TABLET (1,000 UNITS) 125 MCG PO (10:00)
--- NOTE | 2020-10-11 10:06 | PCM.PN.ID ---
Physical Exam Narrative Rash and itching about the same today, no fever Const alert General Appearance: cooperative Resp normal air movement and clear to auscultation bilaterally Cardio regular rate and regular rhythm GI normal to inspection, nondistended, normoactive bowel sounds Extremity Extremity Narrative: improving redness on BLE. Still some redness and itching on arms. ID ID: Route of nutrition/ use of supplements: [] Nutritional Intake: [] IV Site: [] Chavez Catheter: [] Assessment & Plan Assessment/Plan (1) Cellulitis: PLAN: Improving. Bcx with strep. Rash with PCN and ? keflex. On ceftriaxone. If tolerates, plan will be for discharge home with po omnicef 300mg bid for 5 more days.. Will follow, d/w Dr. Rodríguez
--- NOTE | 2020-10-11 11:14 | PCM.DC.SUM ---
Providers Date of Admission: 10/07/20 Primary Care Physician: Dr. Ash Conway DO Consultations 10/10/20 10:12 Consult: Infectious Disease Routine Consulting Provider: Israel Vázquez Reason for Consult: Cellulitis with bacteremia EMERGENT Consult: No MD Notified: Yes Date Notified: 10/10/20 Time Notified: 10:40 Method of Notification: spoke with office Reason For Visit: SEPSIS/CELLULITIS Diagnosis Discharge Diagnosis (1) Cellulitis: Status: Acute Code(s): L03.90 - Cellulitis, unspecified Medications at Discharge Home Medications cholecalciferol (vitamin D3) 50 mcg (2,000 unit) capsule 5,000 unit PO QODAY 08/13/17 vitamin B complex 1 tab PO QDAY 08/13/17 acetaminophen 650 mg PO Q6H PRN PRN tab 01/02/20 metoprolol succinate 25 mg PO DAILY 30 Days #30 tab 01/02/20 paroxetine HCl 40 mg PO DAILY 30 Days #30 tab 01/02/20 hydrochlorothiazide 25 mg PO DAILY 10/07/20 levothyroxine 137 mcg PO DAILY 10/07/20 oxybutynin chloride 10 mg PO DAILY 10/07/20 pregabalin [Lyrica] 25 mg PO TID 10/07/20 cefdinir 300 mg PO BID 5 Days #10 cap 10/11/20 Hospital Course Summary of Care Provided Minutes Spent on Discharge: 35 Hospital Course: Patient is a 80-year-old lady admitted with fever and generalized malaise. Patient was found to have erythema and warmth involving both lower extremities right worse than left. Was also found to have a maculopapular rash on both upper extremities. Diagnosis of sepsis secondary to bilateral lower extremities made admitted to regular nursing floor for further management 1. Sepsis ?Secondary to bilateral lower extremity cellulitis. Patient was started on vancomycin and cefazolin. Cultures sent positive for group G strep. Patient was initially managed with vancomycin and cefazolin the latter which was discontinued due to suspected allergic reaction. Consultation placed to ID -Case was discussed with Dr. Vázquez who did switch patient to ceftriaxone which patient tolerated. Patient was subsequently discharged home on Omnicef for 5 more days. 2. Maculopapular rash Probably related to patient underlying strep infection with bacteremia 3. Hypokalemia ?Corrected per protocol 4. Hypothyroidism - Patient is on levothyroxine home dose continued 5. Hypertension - Blood pressure controlled, home medications continued with dose adjustment as needed 6. DVT prophylaxis ?SC heparin Physical Exam Narrative GENERAL: cooperative HEENT: Atraumatic; EYES; Anicteric, Normal Conjunctiva NECK; supple, normal thyroid, RESPIRATORY: Diminished to auscultation CARDIOVASCULAR: Regular S1 S2, GI: soft, normoactive bowel sounds, : No Renal angle tenderness; EXTREMITIES: No edema, no clubbing, MUSCULOSKELETAL: no muscle waisting NEURO: Awake; no lateralizing signs. SKIN: Erythema & warmth involving both lower extremities right worse than left as well as maculopapular rash on upper extremities PSYCH; Flat affect Medical Records Data Medical Nutrition Assessment Dietitian: Nutrition Therapy Diagnosis Start: 10/08/20 12:18 Freq: Status: Active Protocol: Document 10/08/20 12:27 CHI (Rec: 10/08/20 12:28 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 Recommendation Dietitian Recommendations/Changes Will change diet to Regular low sodium d/t CKD Weight / BMI Weight Weight: 67.5 kg Body Mass Index (BMI) 27.1 ABG / Lab / Microbiology Data Result Diagrams: 10/11/20 05:54 10/11/20 05:54 Laboratory: Laboratory Results - last 24 hr 10/11/20 05:54: WBC 7.2, RBC 3.15 L, Hgb 9.4 L, Hct 29.6 L, MCV 94.0, MCH 29.8, MCHC 31.8 L, RDW Std Deviation 46.9 H, RDW Coeff of Zaheer 13.8, Plt Count 253, MPV 10.4, Immature Gran % (Auto) 0.600, Neut % (Auto) 53.5, Lymph % (Auto) 24.9, [place] % (Auto) 15.2 H, Eos % (Auto) 5.0, Baso % (Auto) 0.8, Absolute Neuts (auto) 3.8, Absolute Lymphs (auto) 1.79, Nucleated RBC % 0 10/11/20 05:54: Sodium 138, Potassium 3.6, Chloride 104, Carbon Dioxide 30.0, Anion Gap 4 L, BUN 18, Creatinine 0.84, Estim Creat Clear Calc 42.95, Est GFR (MDRD) Af Amer 84, Est GFR (MDRD) Non-Af 69, BUN/Creatinine Ratio 21.3 H, Glucose 99, Calcium 8.7, Magnesium 1.9 Microbiology: Microbiology 10/07/20 17:15 Urine Catheter - Catheter Urine Culture - Final Culture exhibits no growth. 10/07/20 17:10 Blood Culture (Wb) - Left Forearm Bacteria Detection (PCR) - Final Strep not Strep pneumo 10/07/20 17:10 Blood Culture (Wb) - Left Forearm Blood Culture - Preliminary Streptococcus group G 10/07/20 16:53 Mucosa - Nose SARS-CoV-2 Antigen (Rapid) - Final D/C Instructions Discharge Diet: No restrictions Discharge Activity: Return to Normal Activity Call your doctor if you observe: Fever of 101 or Higher, Shortness of breath, Fainting spells and Chest pain Meaningful Use Info Meaningful Use Diagnoses (Choose all that apply): None applicable Discharge Plan Admission Admit Date/Time: 10/07/20 21:57 Primary Reason for Your Visit: Bilateral extremity cellulitis Attending Provider: Wilmar Rodríguez Primary Care Provider: Ash Conway Consulting Providers: Israel Vázquez Discharge Orders/Prescriptions Prescriptions: New cefdinir 300 mg capsule 300 mg PO BID 5 Days Qty: 10 RF: 0 Continued vitamin B complex [B Complex-Vitamin B12] tablet 1 tab PO QDAY RF: 0 cholecalciferol (vitamin D3) 2,000 unit capsule 5,000 unit PO QODAY RF: 0 acetaminophen 325 MG tablet 650 mg PO Q6H PRN PRN (Reason: Pain Score 1-10/Temp > 100.7 F) RF: 0 metoprolol succinate 25 MG tablet 25 mg PO DAILY 30 Days Qty: 30 RF: 0 paroxetine HCl 40 MG tablet 40 mg PO DAILY 30 Days Qty: 30 RF: 0 oxybutynin chloride 10 mg Tablet Extended Release 24hr 10 mg PO DAILY RF: 0 hydrochlorothiazide 25 mg Tablet 25 mg PO DAILY RF: 0 pregabalin [Lyrica] 25 mg Capsule 25 mg PO TID RF: 0 levothyroxine 125 MCG tablet 137 mcg PO DAILY RF: 0 Referrals / Follow Up: Ash Conway DO [Primary Care Provider] - In 1 Week Disposition Disposition (needs filled in before D/C Order can be placed): Home, Self Care Charges/Coding Visit Charges Inpatient E&M: 01650 Disch Hosp
--- NOTE | 2020-10-11 11:57 | NURSING ---
call placed to pharmacy for 10am Arabella
[2020-10-11] MEDS: 0.9% Saline Lock 10 ML Syringe IV (12:12)
[2020-10-11] MEDS: Ceftriaxone 1 GM/50 ML BAG IV (12:12)
--- NOTE | 2020-10-11 12:39 | CASEMGMT ---
Addendum entered by Keri Tompkins 10/11/20 13:08: Received acceptance from [facility] for HHC. Notified pt. Original Note: BISMARK COLMENARES in to pt room to discuss dc. Pt states she does feel she needs therapy but she cannot get there due to her dtr's work schedule. Pt meets criteria for homebound, pt is interested in HHC therapy. She asks this RN CM to call her dtr to see who her had in the past and she would prefer that agency. TC to pt dtr, she states he had [facility]. TC to [facility] and left message on intake Raina's line. Will wait for acceptance.
[2020-10-11 15:39] VITALS: BP 123/63; PULSE 62; RESP 18; TEMP 37.2; O2SAT 98
== END 2020-10-11 16:25 | disposition home health service (06) | DRG 872 ==
LOC: ED 21:43 → MS3 22:50
PROVIDERS: Nurse Practitioner Family; Admitting Provider Internal Medicine; Emergency Provider Emergency Medicine; PCP Student in an Organized Health Care Education/Training Program; Visit Provider Internal Medicine
DX: A41.9 Sepsis, unspecified organism (principal); L03.115 Cellulitis of right lower limb; L03.116 Cellulitis of left lower limb; B95.4 Other streptococcus as the cause of diseases classified elsewhere; E87.6 Hypokalemia; E03.9 Hypothyroidism, unspecified; K57.30 Diverticulosis of large intestine without perforation or abscess without bleeding; D25.9 Leiomyoma of uterus, unspecified; K46.9 Unspecified abdominal hernia without obstruction or gangrene; H91.92 Unspecified hearing loss, left ear; I12.9 Hypertensive chronic kidney disease with stage 1 through stage 4 chronic kidney disease, or unspecified chronic kidney disease; N18.31 Chronic kidney disease, stage 3a; F32.9 Major depressive disorder, single episode, unspecified; F41.9 Anxiety disorder, unspecified; K21.9 Gastro-esophageal reflux disease without esophagitis; Z79.890 Hormone replacement therapy; Z83.3 Family history of diabetes mellitus; Z88.0 Allergy status to penicillin; Z88.2 Allergy status to sulfonamides; Z96.659 Presence of unspecified artificial knee joint; Z98.51 Tubal ligation status
CPT/HCPCS: 36415; 71045; 74177; 80048; 80053; 80202; 81001; 83605; 83735; 85025; 87040; 87077; 87086; 87149; 87186; 87426; 97110; 97116; 97162; 97166; 97530; 97535; 97802; 99285; J7030; J7040; J7050; Q9967; A4216; J3490

== ENCOUNTER 2021-11-16 11:18 | Emergency (ER) | payer MEDICARE, SELFPAY ==
[2021-11-16] VITALS (14 sets, daily range): BP systolic 154–195; BP diastolic 66–85; PULSE 50–66; RESP 14–22; TEMP 36–37.2; O2SAT 96–100; BMI 26.3
--- NOTE | 2021-11-16 11:44 | EDS_ITS ---
HPI History of Present Illness Chief Complaint: Abn Labs Informant: patient and family Narrative Narrative: Routine blood work that was done today in order to get her prescriptions refilled showed a hemoglobin of 6.2. Done at [facility] outpatient. Sent in because of that. Patient states she has felt a little malaised but for the most part she feels no different than usual even when she walks. No chest pain or focal neurologic symptoms. No GI bleeding or bleeding from elsewhere. No antiplatelet or anticoagulant medications. [facility] Medical History Anxiety Depression GERD (gastroesophageal reflux disease) Hearing loss, left HTN (hypertension) Hypothyroid Hypothyroidism Kidney disease Non-smoker Non-smoker Osteomyelitis Home Medications cholecalciferol (vitamin D3) 50 mcg (2,000 unit) capsule 5,000 unit PO QODAY 08/13/17 [History Last Taken Unknown] vitamin B complex (B Complex-Vitamin B12 tablet) 1 tab PO QDAY 08/13/17 [History Last Taken Unknown] acetaminophen 325 mg tablet 650 mg PO Q6H PRN PRN Pain Score 1-10/Temp > 100.7 F 01/02/20 [Rx Last Taken Unknown] metoprolol succinate 25 mg tablet,extended release 24 hr 25 mg PO DAILY 30 days #30 tabs 01/02/20 [Rx Last Taken Unknown] paroxetine HCl 40 mg tablet 40 mg PO DAILY 30 days #30 tabs 01/02/20 [Rx Last T aken Unknown] hydrochlorothiazide 25 mg tablet 25 mg PO DAILY 10/07/20 [History Last Taken Unknown] levothyroxine 125 mcg tablet 137 mcg PO DAILY 10/07/20 [History Last Taken Unknown] oxybutynin chloride 10 mg tablet,extended release 24 hr 10 mg PO DAILY 10/07/20 [History Last Taken Unknown] pregabalin 25 mg capsule (Lyrica) 25 mg PO TID 10/07/20 [History Last Taken Unknown] cefdinir 300 mg capsule 300 mg PO BID 5 days #10 caps 10/11/20 [Rx Last Taken Unknown] ferrous sulfate 325 mg (65 mg iron) tablet (iron) 325 mg PO BID #60 tabs 11/16/21 [Rx Last Taken Unknown] Allergy/AdvReac Type Severity Reaction Status Date / Time Aminoglycosides Allergy Rash Verified 11/16/21 11:20 bee pollen [Bee Pollen] Allergy Anaphylaxis Verified 11/16/21 11:20 celecoxib [From Celebrex] Allergy Itching Verified 11/16/21 11:20 Sulfa (Sulfonamide Allergy Rash Verified 11/16/21 11:20 Antibiotics) aspirin AdvReac Other Verified 11/16/21 11:20 Penicillins AdvReac Rash Verified 11/16/21 11:20 Family History Sister Cancer Mother Diabetes Heart disease Surgical History h/o tonsilectomy H/O total knee replacement H/O tubal ligation Social History Smoking Status: Never smoker ROS ROS ED Constitutional Constitutional ED: Denies chills or fever(s) Eyes Eyes: Denies change in vision or diplopia ENT ENT ED: Denies rhinorrhea or sore throat Cardiovascular Cardiovascular: Denies chest pain or palpitations Respiratory/Chest Respiratory/Chest: Denies cough or dyspnea Gastrointestinal Gastrointestinal: Denies abdominal pain, diarrhea, nausea or vomiting Genitourinary Genitourinary ED: Denies dysuria or hematuria Musculoskeletal Musculoskeletal: Reports other Details: Chronic right lower extremity pain in her hip ; Denies back pain or neck pain Integumentary Denies abscess or rash Neurologic Neurologic: Denies headache(s), paresthesias or weakness Psychiatric Psychiatric: Denies anxiety or suicidal thoughts EXAM Physical Exam Const Vital Signs: 11/16/21 11:20 11/16/21 13:59 11/16/21 14:14 Temperature 98.9 F 97.7 F L 97.7 F L Temperature Source Temporal Temporal Oral Pulse Rate 66 51 L 50 L Respiratory Rate 18 14 18 Blood Pressure 162/81 H 181/70 H 177/73 H Blood Pressure Mean 108 107 107 Blood Pressure Source Monitor Monitor Blood Pressure Position Sitting Sitting Blood Pressure Location Right Arm Right Forearm Pulse Ox 100 98 99 Oxygen Delivery Method Room Air Room Air Room Air 11/16/21 15:14 11/16/21 15:17 11/16/21 15:26 Temperature 97.9 F 97.9 F 97.6 F L Temperature Source Oral Oral Oral Pulse Rate 52 L 52 L 53 L Respiratory Rate 17 17 18 Blood Pressure 160/72 H 160/72 H 195/81 H Blood Pressure Mean 101 101 119 Blood Pressure Source Monitor Monitor Blood Pressure Position Semi-Fowlers Semi-Fowlers Blood Pressure Location Right Arm Right Arm Pulse Ox 100 99 100 Oxygen Delivery Method Room Air Room Air Room Air 11/16/21 16:14 11/16/21 16:22 11/16/21 16:26 Temperature 96.9 F L 97.4 F L 97.2 F L Temperature Source Temporal Temporal Temporal Pulse Rate 50 L 53 L 54 L Respiratory Rate 16 17 20 H Blood Pressure 170/69 H 170/69 H 168/66 H Blood Pressure Mean 102 102 100 Blood Pressure Source Monitor Monitor Monitor Blood Pressure Position Semi-Fowlers Semi-Fowlers Semi-Fowlers Blood Pressure Location Right Arm Right Arm Right Arm Pulse Ox 97 98 99 Oxygen Delivery Method Room Air Room Air Room Air 11/16/21 16:41 Temperature 97.5 F L Temperature Source Temporal Pulse Rate 54 L Respiratory Rate 19 H Blood Pressure 154/85 H Blood Pressure Mean 108 Blood Pressure Source Monitor Blood Pressure Position Semi-Fowlers Blood Pressure Location Right Arm Pulse Ox 96 Oxygen Delivery Method Room Air Positive well nourished and well developed General Appearance ED: well developed and NAD HEENT Reports moist mucous membranes HEENT Narrative: Edentulous normocephalic and atraumatic Eyes PERRL and EOMs intact bilaterally Neck full ROM and supple Neck Narrative: Kyphotic Resp normal respiratory effort and clear to auscultation bilaterally Cardio regular rate and regular rhythm Rate: other Other Details: Systolic murmur 3/6 GI non-tender and non-distended Auscultation: normoactive bowel sounds Palpation: soft Back/Spine no CVA tenderness General Back: other FROM Extremity normal to inspection General Extremety ED: Yes edema; Negative for pulses abnormal or tenderness General Extremity: edema bilateral lower extremity Details: mild; Negative for pulses abnormal Neuro oriented x3, CN's II-XII intact bilaterally and no sensory deficits noted Sensorium / Orientation: awake and alert Motor Exam: strength 5/5 throughout Psych mental status grossly normal Skin no rashes or lesions noted and no wounds MDM MDM MDM Narrative Medical decision making narrative: I did a Hemoccult it is negative. Patient's potassium is low in addition to her hemoglobin, we worked on replacing both. She is almost asymptomatic with all of this. I discussed with Dr. Godfrey who asked me to add on B12, folate, iron studies which was done, the plan is to get her 2 units of blood and discharge her from the ER when that is completed. Discussed with patient, she consents for blood we discussed pros and cons of that. Also discussed with her daughter who is healthcare practitioner, and she is comfortable with that plan and following up. While patient was being observed getting blood here in the emergency department, iron studies came back and they are consistent with significant iron deficiency. At discharge I will prescribe her iron sulfate to use twice daily till she can follow-up. Lab Data Attestation: I reviewed the patient's lab results. Labs: Laboratory Results - last 24 hr 11/16/21 11/16/21 11/16/21 11:52 11:52 11:52 WBC 3.7 L RBC 3.21 L Hgb 6.1 L Hct 22.2 L MCV 69.2 L MCH 19.0 L MCHC 27.5 L RDW Std Deviation 51.8 H RDW Coeff of Zaheer 20.8 H Plt Count 197 MPV 9.8 Immature Gran % (Auto) 0.500 Neut % (Auto) 49.7 Lymph % (Auto) 29.7 Gregory % (Auto) 14.9 H Eos % (Auto) 3.8 Baso % (Auto) 1.4 H Absolute Neuts (auto) 1.8 L Absolute Lymphs (auto) 1.10 Nucleated RBC % 0 Hypochromasia 2+ Anisocytosis 1+ Sodium 143 Potassium 3.1 L Chloride 109 H Carbon Dioxide 29.0 Anion Gap 5 BUN 17 Creatinine 0.73 Estim Creat Clear Calc 35.49 Est GFR (MDRD) Af Amer 99 Est GFR (MDRD) Non-Af 82 BUN/Creatinine Ratio 23.3 H Glucose 106 Calcium 9.1 Iron TIBC Iron Saturation Ferritin Vitamin B12 Folate Blood Type B POSITIVE Antibody Screen NEGATIVE Crossmatch See Detail 11/16/21 11/16/21 11:52 15:53 WBC RBC Hgb Hct MCV MCH MCHC RDW Std Deviation RDW Coeff of Zaheer Plt Count MPV Immature Gran % (Auto) Neut % (Auto) Lymph % (Auto) Gregory % (Auto) Eos % (Auto) Baso % (Auto) Absolute Neuts (auto) Absolute Lymphs (auto) Nucleated RBC % Hypochromasia Anisocytosis Sodium Potassium Chloride Carbon Dioxide Anion Gap BUN Creatinine Estim Creat Clear Calc Est GFR (MDRD) Af Amer Est GFR (MDRD) Non-Af BUN/Creatinine Ratio Glucose Calcium Iron 10 L TIBC 368 Iron Saturation 2.7 L Ferritin 5 L Vitamin B12 295 Folate 11.10 Blood Type Antibody Screen Crossmatch Discharge Plan Triage Chief Complaint: Abn Labs Other Complaint: Dizziness ED Provider: Javier Aguilar Dx/Rx/DC Orders Clinical Impression: Iron deficiency anemia, Hypokalemia Instructions: Anemia, ED Hypokalemia Prescriptions: New ferrous sulfate [iron] 325 mg (65 mg iron) tablet 325 mg PO BID Qty: 60 0RF No Action vitamin B complex [B Complex-Vitamin B12] tablet 1 tab PO QDAY cholecalciferol (vitamin D3) 2,000 unit capsule 5,000 unit PO QODAY acetaminophen 325 MG tablet 650 mg PO Q6H PRN PRN (Reason: Pain Score 1-10/Temp > 100.7 F) 0RF metoprolol succinate 25 MG tablet 25 mg PO DAILY 30 Days Qty: 30 0RF paroxetine HCl 40 MG tablet 40 mg PO DAILY 30 Days Qty: 30 0RF oxybutynin chloride 10 mg Tablet Extended Release 24hr 10 mg PO DAILY hydrochlorothiazide 25 mg Tablet 25 mg PO DAILY pregabalin [Lyrica] 25 mg Capsule 25 mg PO TID Rx Instructions: 50 MG AT BEDTIME levothyroxine 125 MCG tablet 137 mcg PO DAILY cefdinir 300 mg capsule 300 mg PO BID 5 Days Qty: 10 0RF Primary Care Provider: Ash Conway Referrals: Ash Conway DO [Primary Care Provider] - 3-5 Days Disposition Disposition: Home, Self Care
[2021-11-16 12:09] LABS: Absolute Neutrophil Count 1.8 X10^3/uL (2.0-7.7); Basophil# 0.05 X10^3/uL; Basophil% 1.4 % (0-1); Eosinophil# 0.14 X10^3/uL; Eosinophils% 3.8 % (0-5); Hematocrit 22.2 % (37-47); Hemoglobin 6.1 g/dL (12.0-15.0); Lymphocyte % 29.7 % (19-41); Mean Corp Hgb Conc 27.5 g/dL (32-36); Mean Corpuscular Volume 69.2 fL (81-99); Mean Platelet Vol. 9.8 fl (6.2-12.0); Monocyte# 0.55 X10^3/uL; Monocyte% 14.9 % (0-10); NRBC Flagged by Analyzer 0 % (0-5); Neutrophil # 1.84 X10^3/uL (2.7-7.7); Neutrophil % 49.7 % (47-70); POSITIVE MORPHOLOGY YES; Platelet Count 197 K/mm3 (150-450); RBC Distribution Width CV 20.8 % (11.6-14.6); RBC Distribution Width SD 51.8 fl (35.1-43.9); Red Blood Count 3.21 M/mm3 (4.2-5.4); White Blood Count 3.7 K/mm3 (4.4-11.0)
[2021-11-16 12:11] LABS: Differential Indicated SCAN CRITERIA MET
[2021-11-16 12:22] LABS: Anion Gap 5 (5-15); BUN 17 mg/dL (7-18); BUN/Creat Ratio 23.3 RATIO (10-20); Calcium,Total 9.1 mg/dL (8.5-10.1); Chloride 109 mmol/L (98-107); Creatinine, Serum 0.73 mg/dL (0.55-1.02); EST Glomerular Filtration Rate 82 mL/min (>60); Est Glom Filt Rate - Afr Amer 99 mL/min (>60); Estimated Creatinine Clearance 35.49 ml/min; Glucose 106 mg/dL (74-106); Potassium 3.1 mmol/L (3.5-5.1); Sodium Level 143 mmol/L (136-145)
[2021-11-16 12:37] LABS: Anisocytosis 1+; Hypochromasia 2+
[2021-11-16 16:29] LABS: Ferritin 5 ng/mL (8-252); Iron 10 ug/dL (50-170); Iron Binding Capacity,Total 368 ug/dL (250-450); PERCENT IRON SATURATION 2.7 % (15.0-55.0)
[2021-11-16 16:37] LABS: Vitamin B12 295 pg/mL (211-911)
[2021-11-16] MEDS: Potassium Chloride 10mEq/100mL 10 MEQ/100 ML IV.SOLN. 100 MEQ IV BOLUS (18:13)
[2021-11-16] MEDS: Potassium Chloride Oral Tablet 20 MEQ PO (19:25)
--- NOTE | 2021-11-16 19:34 | ED.RN ---
attempted to call pts daugther per pt request, no answer.
== END 2021-11-16 19:28 | disposition home or self-care (01) ==
PROVIDERS: Emergency Provider Emergency Medicine; PCP Student in an Organized Health Care Education/Training Program; Visit Provider Emergency Medicine
DX: D50.9 Iron deficiency anemia, unspecified (principal); E87.6 Hypokalemia; R42 Dizziness and giddiness; I10 Essential (primary) hypertension; F41.9 Anxiety disorder, unspecified; F32.A Depression, unspecified; Z79.899 Other long term (current) drug therapy
CPT/HCPCS: 36430; 80048; 82274; 82607; 82728; 82746; 83540; 83550; 85025; 86850; 86900; 86901; 86920; 86922; 99284; J7030; J7040; P9016; A4216

== ENCOUNTER 2022-07-14 16:21 | Emergency (ER) | payer MEDICARE, SELFPAY ==
[2022-07-14 16:23] VITALS: BP 172/67; PULSE 54; RESP 16; TEMP 36.4; O2SAT 96
[2022-07-14 16:31] VITALS: BP 194/74; PULSE 53; RESP 16; O2SAT 94
[2022-07-14 16:32] VITALS: BMI 22.3
--- NOTE | 2022-07-14 16:47 | CT_ITS ---
STUDY: CT ABDOMEN AND PELVIS WITHOUT CONTRAST REASON FOR EXAM: Female, 82 years old. Pain RADIATION DOSAGE (If Supplied By Facility): CTDIvol = ( 6.04 ) mGy, DLP = ( 406.85 ) mGycm TECHNIQUE: Transaxial images were obtained from the dome of the diaphragm to the symphysis pubis without oral contrast, and without intravenous contrast. Sagittal and coronal images were reconstructed. Individualized dose optimization techniques were used for this CT. COMPARISON: None. FINDINGS: The visualized lung bases are unremarkable. Heart size is normal. However there is a large hiatal hernia displacing the cardiac silhouette anteriorly. Normal liver. Normal gallbladder and extrahepatic biliary system. Normal spleen. Normal pancreas. Normal bilateral adrenal glands. Normal right kidney. Normal left kidney. Large hiatal hernia is noted.. Hyperdense fluid noted within the residual intra-abdominal portion of the stomach of uncertain etiology. Cannot exclude intraluminal hemorrhage. Nonspecific ileus diffuse fecal retention in the colon.. Diverticular changes of the descending and sigmoid colon without evidence for acute diverticulitis No evidence for acute appendicitis. Mild atherosclerotic changes of the aorta without evidence for aneurysm. Normal inferior vena cava. Normal retroperitoneum. There are small calcified intrauterine fibroids. Normal urinary bladder. Small bilateral fat-containing inguinal hernias.. Lumbar spine demonstrates degenerative changes CT/Abdomen/Pelvis without Cont IMPRESSION: Large intrathoracic hiatal hernia.. Portion of the stomach within the abdomen demonstrates significant retained content with attenuated density possibly representing intraluminal hemorrhage. Nonspecific ileus pattern is noted without evidence for small bowel obstruction. Diverticular disease of the descending sigmoid colon without evidence for acute diverticulitis. Electronically Signed: Amando Gould MD at 18:32 EDT ,
--- NOTE | 2022-07-14 16:49 | EDS_ITS ---
HPI HPI - GI History of Present Illness Chief Complaint: Nausea/Vomiting Informant: patient and family Narrative Narrative: Patient here with daughter evaluation concern for coffee-ground emesis. Reported last night after midnight had symptoms of emesis in the bathroom reports some epigastric discomfort. Today no additional emesis that was brown in color. Did not drink any coffee. She does not take anticoagulants. Occasionally she takes Aleve last use was 2 days ago. Her daughter takes this regularly. No history of endoscopies or colonoscopies. No abdominal surgeries. No fevers. Reported normal bowel movement yesterday. Positive flatus. Daughter brought in emesis in a water bottle that coffee-ground in nature, Approximately 2 ounces. Prior similar symptoms: No PFSH PFSH Medical History Anxiety Depression GERD (gastroesophageal reflux disease) Hearing loss, left HTN (hypertension) Hypothyroid Hypothyroidism Kidney disease Non-smoker Non-smoker Osteomyelitis Home Medications cholecalciferol (vitamin D3) 50 mcg (2,000 unit) capsule 5,000 unit PO QODAY 08/13/17 [History Last Taken Unknown] acetaminophen 325 mg tablet 650 mg PO Q6H PRN PRN Pain Score 1-10/Temp > 100.7 F 01/02/20 [Rx Last Taken Unknown] metoprolol succinate 25 mg tablet,extended release 24 hr 25 mg PO DAILY 30 days #30 tabs 01/02/20 [Rx Last Taken Unknown] paroxetine HCl 40 mg tablet 40 mg PO DAILY 30 days #30 tabs 01/02/20 [Rx Last Taken Unknown] levothyroxine 125 mcg tablet 137 mcg PO DAILY 10/07/20 [History Last Taken Unknown] oxybutynin chloride 10 mg tablet,extended release 24 hr 15 mg PO DAILY 10/07/20 [History Last Taken Unknown] pregabalin 25 mg capsule (Lyrica) 25 mg PO TID 10/07/20 [History Last Taken Unknown] ferrous sulfate 325 mg (65 mg iron) tablet (iron) 325 mg PO BID #60 tabs 11/16/21 [Rx Last Taken Unknown] amlodipine 2.5 mg tablet 2.5 mg PO DAILY 07/14/22 [History Last Taken Unknown] Allergy/AdvReac Type Severity Reaction Status Date / Time Aminoglycosides Allergy Rash Verified 07/14/22 16:22 bee pollen [Bee Pollen] Allergy Anaphylaxis Verified 07/14/22 16:22 celecoxib [From Celebrex] Allergy Itching Verified 07/14/22 16:22 Sulfa (Sulfonamide Allergy Rash Verified 07/14/22 16:22 Antibiotics) aspirin AdvReac Other Verified 07/14/22 16:22 Penicillins AdvReac Rash Verified 07/14/22 16:22 Family History Sister Cancer Mother Diabetes Heart disease Surgical History h/o tonsilectomy H/O total knee replacement H/O tubal ligation Social History Smoking Status: Never smoker ROS ROS ED Constitutional Constitutional ED: Denies chills, fever(s) or sweats Eyes Eyes: Denies change in vision ENT ENT ED: Denies dysphagia or sore throat Cardiovascular Cardiovascular: Denies chest pain, leg edema, palpitations or racing heartbeat Respiratory/Chest Respiratory/Chest: Denies cough, dyspnea or dyspnea on exertion Gastrointestinal Gastrointestinal: Reports abdominal pain, nausea and vomiting; Denies diarrhea Genitourinary Genitourinary ED: Denies dysuria, hematuria or urinary frequency Musculoskeletal Musculoskeletal: Denies back pain, extremity pain or neck pain Integumentary Denies rash or wounds Neurologic Neurologic: Denies headache(s), paresthesias or weakness EXAM Physical Exam Const Vital Signs: 07/14/22 16:23 07/14/22 16:31 07/14/22 18:26 Temperature 97.5 F L Temperature Source Temporal Pulse Rate 54 L 53 L 50 L Respiratory Rate 16 16 18 Blood Pressure 172/67 H 194/74 H 200/86 H Blood Pressure Mean 102 114 124 Pulse Ox 96 94 95 Oxygen Delivery Method Room Air Room Air Room Air 07/14/22 18:45 07/14/22 20:18 Temperature Temperature Source Pulse Rate 61 58 L Respiratory Rate 16 16 Blood Pressure 188/91 H 181/71 H Blood Pressure Mean 123 107 Pulse Ox 99 94 Oxygen Delivery Method Room Air Room Air Positive well nourished and well developed General Appearance ED: well developed and NAD HEENT Reports moist mucous membranes normocephalic and atraumatic Eyes PERRL, EOMs intact bilaterally and conjunctivae normal General Eye ED: Yes normal appearance of both eyes Neck no lymphadenopathy and supple General: Negative for tenderness Chest Wall Chest: Negative for tenderness Resp normal respiratory effort and normal air movement Effort and Inspection: symmetric chest movement; Negative for respiratory distress Cardio regular rate, regular rhythm and no murmurs Peripheral Pulses: pulses 2+ throughout GI normal to inspection, nondistended, normoactive bowel sounds GI Narrative: Minimal epigastric tenderness negative Barton's or McBurney's tenderness. Palpation: Negative for guarding or rebound tenderness present Back/Spine no CVA tenderness and no thoracic nor lumbar tenderness Extremity normal to inspection General Extremety ED: Negative for edema or tenderness General Extremity: Negative for edema Neuro oriented x3 and no sensory deficits noted Sensorium / Orientation: awake and alert Skin no rashes or lesions noted and no wounds MDM MDM MDM Narrative Medical decision making narrative: Interventions / MDM: Differential diagnosis: Upper GI bleed, vomiting, bowel obstruction Diagnosis considered but do not suspect: N/A My EKG interpretation: N/A Imaging independently reviewed and interpreted by myself: CT scan abdomen pelvis: Large hiatal hernia, per radiology hyperdensity in the stomach questionable gastric hemorrhage. Normal appendix. External documents reviewed: N/A Test considered but not ordered:N/A ED course: Patient soft abdomen on exam. She is given Protonix due to emesis questionable coffee-ground. There is dark emesis brought in on a water bottle, this was sent to the lab for Gastroccult which returned negative. Her abdominal labs were normal hemoglobin 0.3 lipase normal liver enzymes slight elevated alk phos of 217. She was treated with Zofran fluids. CT scan results per radiology questionable gastric hemorrhage with a hyperdensity however her Gastroccult was negative. Re-evaluation: stable, attempted to p.o. challenge, she had emesis again additional Zofran was given, monitored with additional dark emesis. Gastroccult will be rechecked in the lab. With intractable nausea and vomiting, will require hospitalization. 2020: Gastroccult returned positive this time. Patient was given Protonix, currently have no GI coverage this weekend. Defer discussed with patient and daughter for transfer to facility with GI coverage. We will start a Protonix drip. 2119: I spoke with hospitalist at [facility] [place] Dr. Lloyd. Di scussed patient's history and findings with no specialist coverage, patient accepted to their facility for further management. Patient and daughter updated. Disposition discussed with patient/family/significant other: Patient and daughter Case discussed with consulting clinician: N/A Lab Data Labs: Laboratory Results - last 24 hr 07/14/22 07/14/22 17:10 17:10 WBC 6.6 RBC 4.13 L Hgb 13.3 Hct 38.9 MCV 94.2 MCH 32.2 H MCHC 34.2 RDW Std Deviation 41.8 RDW Coeff of Zaheer 12.0 Plt Count 218 MPV 11.6 Immature Gran % (Auto) 0.200 Neut % (Auto) 74.1 H Lymph % (Auto) 17.8 L [place] % (Auto) 7.1 Eos % (Auto) 0.2 Baso % (Auto) 0.6 Absolute Neuts (auto) 4.9 Absolute Lymphs (auto) 1.17 Nucleated RBC % 0 Sodium 142 Potassium 3.5 Chloride 104 Carbon Dioxide 29.0 Anion Gap 9 BUN 24 H Creatinine 0.89 Estim Creat Clear Calc 41.01 Est GFR (MDRD) Af Amer 78 Est GFR (MDRD) Non-Af 64 BUN/Creatinine Ratio 26.8 H Glucose 110 H Calcium 9.9 Total Bilirubin 1.20 H AST 29 ALT 19 Alkaline Phosphatase 217 H Total Protein 7.5 Albumin 3.8 Globulin 3.7 Albumin/Globulin Ratio 1.0 Lipase 42 Radiography Diagnostic Testing: Clinical Impression(s) from Imaging Studies Abdomen/Pelvis CT 07/14/22 16:47 IMPRESSION: Large intrathoracic hiatal hernia.. Portion of the stomach within the abdomen demonstrates significant retained content with attenuated density possibly representing intraluminal hemorrhage. Nonspecific ileus pattern is noted without evidence for small bowel obstruction. Diverticular disease of the descending sigmoid colon without evidence for acute diverticulitis. Electronically Signed: Amando Gould MD at 18:32 EDT , Discharge Plan Triage Chief Complaint: Nausea/Vomiting Other Complaint: GI Bleed ED Provider: Lb Knott Dx/Rx/DC Orders Clinical Impression: Acute upper GI bleed, Hematemesis, Vomiting Prescriptions: No Action cholecalciferol (vitamin D3) 2,000 unit capsule 5,000 unit PO QODAY acetaminophen 325 MG tablet 650 mg PO Q6H PRN PRN (Reason: Pain Score 1-10/Temp > 100.7 F) 0RF metoprolol succinate 25 MG tablet 25 mg PO DAILY 30 Days Qty: 30 0RF paroxetine HCl 40 MG tablet 40 mg PO DAILY 30 Days Qty: 30 0RF oxybutynin chloride 10 mg Tablet Extended Release 24hr 15 mg PO DAILY pregabalin [Lyrica] 25 mg Capsule 25 mg PO TID Rx Instructions: 50 MG AT BEDTIME levothyroxine 125 MCG tablet 137 mcg PO DAILY ferrous sulfate [iron] 325 mg (65 mg iron) tablet 325 mg PO BID Qty: 60 0RF amlodipine 2.5 mg tablet 2.5 mg PO DAILY Label Comments: TAKE 1 TABLET BY MOUTH ONCE DAILY Primary Care Provider: Ash Conway Referrals: Ash Conway DO [Primary Care Provider] - Disposition Disposition: DC/Tx to Another Type of [facility]CF
[2022-07-14] MEDS: 0.9% Normal Saline 1,000 ML 125 ML IV (17:08)
[2022-07-14] MEDS: Ondansetron 4 MG/2 ML Vial IV ×2 (17:09→18:51)
[2022-07-14 17:26] LABS: Absolute Lymphocyte Count 1.17 X10^3/uL (0.83-4.51); Absolute Neutrophil Count 4.9 X10^3/uL (2.0-7.7); Basophil# 0.04 X10^3/uL; Basophil% 0.6 % (0-1); Eosinophil# 0.01 X10^3/uL; Eosinophils% 0.2 % (0-5); Hematocrit 38.9 % (37-47); Hemoglobin 13.3 g/dL (12.0-15.0); Lymphocyte # 1.17 X10^3/ul (0.83-4.51); Lymphocyte % 17.8 % (19-41); Mean Corp Hgb Conc 34.2 g/dL (32-36); Mean Corpuscular Hgb 32.2 pg (27.0-32.0); Mean Corpuscular Volume 94.2 fL (81-99); Mean Platelet Vol. 11.6 fl (6.2-12.0); Monocyte# 0.47 X10^3/uL; Monocyte% 7.1 % (0-10); NRBC Flagged by Analyzer 0 % (0-5); Neutrophil # 4.88 X10^3/uL (2.7-7.7); Neutrophil % 74.1 % (47-70); Platelet Count 218 K/mm3 (150-450); RBC Distribution Width SD 41.8 fl (35.1-43.9); Red Blood Count 4.13 M/mm3 (4.2-5.4); White Blood Count 6.6 K/mm3 (4.4-11.0)
[2022-07-14 17:43] LABS: AST(SGOT) 29 U/L (15-37); Alanine Aminotransfer ALT/SGPT 19 U/L (13-56); Albumin, Serum 3.8 g/dL (3.2-5.0); Alkaline Phosphatase 217 U/L (45-117); Anion Gap 9 (5-15); BUN 24 mg/dL (7-18); BUN/Creat Ratio 26.8 RATIO (10-20); Calcium,Total 9.9 mg/dL (8.5-10.1); Chloride 104 mmol/L (98-107); Creatinine, Serum 0.89 mg/dL (0.55-1.02); EST Glomerular Filtration Rate 64 mL/min (>60); Est Glom Filt Rate - Afr Amer 78 mL/min (>60); Estimated Creatinine Clearance 41.01 ml/min; Globulin 3.7 g/dL (2.2-4.2); Glucose 110 mg/dL (74-106); Lipase 42 U/L (13-75); Potassium 3.5 mmol/L (3.5-5.1); Protein, Total 7.5 g/dL (6.4-8.2); Sodium Level 142 mmol/L (136-145)
[2022-07-14 18:26] VITALS: BP 200/86; PULSE 50; RESP 18; O2SAT 95
[2022-07-14 18:45] VITALS: BP 188/91; PULSE 61; RESP 16; O2SAT 99
[2022-07-14 20:18] VITALS: BP 181/71; PULSE 58; RESP 16; O2SAT 94
--- NOTE | 2022-07-14 20:42 | NURSING ---
CALLED [facility] TRANSFER LINE, TALKED TO [place] [facility] FAXED
--- NOTE | 2022-07-14 21:27 | NURSING ---
ACCEPTED AT [facility]
--- NOTE | 2022-07-14 21:55 | NURSING ---
[address] BED 1 NURSE TO NURSE [phone]
--- NOTE | 2022-07-14 22:10 | NURSING ---
CALLED [facility], ETA IS 3 TO 4 HRS
[2022-07-14 22:23] VITALS: BP 176/89; PULSE 62; RESP 16; TEMP 37; O2SAT 94
--- NOTE | 2022-07-15 01:51 | NURSING ---
CALLED [facility], ETA IS ANOTHER 30 MIN
== END 2022-07-15 02:30 | disposition other institution (70) ==
PROVIDERS: Emergency Provider Emergency Medicine; PCP Student in an Organized Health Care Education/Training Program; Visit Provider Emergency Medicine
DX: K92.2 Gastrointestinal hemorrhage, unspecified (principal); I10 Essential (primary) hypertension; K92.0 Hematemesis; K44.9 Diaphragmatic hernia without obstruction or gangrene; R14.3 Flatulence; E03.9 Hypothyroidism, unspecified; K21.9 Gastro-esophageal reflux disease without esophagitis
CPT/HCPCS: 74176; 80053; 82271; 83690; 85025; 99283; J7030; A4216; J2405; J3490